=== PATIENT | male | born 1970 | race Caucasian/White ===

== ENCOUNTER 2022-10-30 19:15 | Observation (INO) | payer OTHER ==
[2022-10-30] MEDS ORDERED: ACETAMINOPHEN 1000 MG/100 ML BAG IVPB ONE (20:00)
[2022-10-30] MEDS ORDERED: ALBUTEROL SO4 2.5/IPRATROPIUM 0.5 INH SOL 3 ML VIAL.NEB. NEB ONE ×2 (20:30→21:36)
[2022-10-30] MEDS ORDERED: ACETAMINOPHEN INJECTION 100 ML IVPB ONE (20:30)
[2022-10-30] MEDS: ALBUTEROL SO4 2.5/IPRATROPIUM 0.5 INH SOL 3 ML VIAL.NEB. NEB SCH ×3 (21:03→21:41)
[2022-10-30 22:01] LABS: VENOUS O2 SATURATION 52.8 % (70-80); VENOUS PCO2 47.3 mmHg (38-52); VENOUS PH 7.344 (7.310-7.410)
[2022-10-30 22:08] LABS: HEMATOCRIT 43.8 % (35.4-49); HEMOGLOBIN 14.5 GM/dL (11.7-16.9); MCH 28.6 pg (25.7-33.7); MCHC 33.1 g/dl (32.0-35.9); MEAN CELL VOLUME 86.5 fl (80-96); MEAN PLT VOLUME 8.7 fl (7.5-11.1); PLATELET COUNT 250 10^3/uL (134-434); RBC 5.06 M/mm3 (4.00-5.60); RDW 15.4 % (11.9-15.9); WHITE BLOOD COUNT 12.9 K/mm3 (4.0-10.0)
[2022-10-30 22:19] LABS: INR 0.95 (0.83-1.09)
[2022-10-30 22:21] LABS: CHLORIDE 110 mmol/L (98-107); POTASSIUM 4.2 mmol/L (3.5-5.1); SODIUM 142 mmol/L (136-145)
[2022-10-30 22:22] LABS: CALCIUM 8.6 mg/dL (8.5-10.1)
[2022-10-30 22:24] LABS: ALBUMIN 3.3 g/dl (3.4-5.0); ANION GAP 4 MMOL/L (8-16); CO2 28 mmol/L (21-32); GLUCOSE,RANDOM 90 mg/dL (74-106)
[2022-10-30 22:27] LABS: SGOT/AST 21 U/L (15-37); SGPT/ALT 25 U/L (13-61)
[2022-10-30 22:28] LABS: TOT PROT 6.2 g/dl (6.4-8.2)
[2022-10-30 22:30] LABS: ALK PHOS 70 U/L (45-117)
[2022-10-30 22:32] LABS: N-TERMINAL BNP < 5.0 pg/ml (5-125)
[2022-10-30 22:43] LABS: BILIRUBIN,TOTAL 0.2 mg/dL (0.2-1); BLOOD UREA NITROGEN 12.8 mg/dL (7-18)
[2022-10-30] MEDS ORDERED: ACETAMINOPHEN 500 MG TABLET (FP) PO ONE (23:11)
[2022-10-31 00:35] LABS: ANISOCYTOSIS 0; MACROCYTOSIS 0
[2022-10-31] MEDS ORDERED: traMADol HCL 50 MG TABLET PO PRN (01:50)
[2022-10-31] MEDS ORDERED: ACETAMINOPHEN 325 MG TABLET (FP) PO PRN (01:52)
[2022-10-31] MEDS ORDERED: ALBUTEROL SO4 HFA INHALER IH PRN (01:52)
[2022-10-31] MEDS ORDERED: FUROSEMIDE 40 MG/4 ML INJECTABLE VIAL IVPUSH ONE (01:57)
[2022-10-31] MEDS ORDERED: FUROSEMIDE 40 MG/4 ML INJECTABLE VIAL ONE (02:03)
[2022-10-31] MEDS: methylPREDNISolone NA SUCC 40 MG/1 ML VIAL IVPUSH SCH ×4 (03:00→22:39)
[2022-10-31] MEDS ORDERED: FUROSEMIDE 40 MG/4 ML INJECTABLE VIAL IVPUSH SCH (06:00)
[2022-10-31 06:46] LABS: POTASSIUM 4.4 mmol/L (3.5-5.1)
[2022-10-31 06:47] LABS: CALCIUM 8.7 mg/dL (8.5-10.1)
[2022-10-31 06:48] LABS: BLOOD UREA NITROGEN 12.9 mg/dL (7-18); MAGNESIUM 2.2 mg/dL (1.8-2.4)
[2022-10-31 06:52] LABS: PHOSPHOROUS 2.3 mg/dL (2.5-4.9)
[2022-10-31 06:56] LABS: HEMATOCRIT 42.9 % (35.4-49); HEMOGLOBIN 14.3 GM/dL (11.7-16.9); MCH 29.1 pg (25.7-33.7); MCHC 33.4 g/dl (32.0-35.9); MEAN PLT VOLUME 8.4 fl (7.5-11.1); PLATELET COUNT 236 10^3/uL (134-434); RBC 4.93 M/mm3 (4.00-5.60); RDW 15.4 % (11.9-15.9); WHITE BLOOD COUNT 12.3 K/mm3 (4.0-10.0)
[2022-10-31] MEDS ORDERED: FUROSEMIDE 20 MG TABLET (FP) ONE ×2 (08:33→14:08)
[2022-10-31] MEDS ORDERED: TAMSULOSIN HCL 0.4 MG CAP ONE (08:33)
[2022-10-31] MEDS ORDERED: ALBUTEROL SO4 2.5/IPRATROPIUM 0.5 INH SOL 3 ML VIAL.NEB. NEB ONE ×3 (08:33→15:49)
[2022-10-31] MEDS ORDERED: methylPREDNISolone NA SUCC 40 MG/1 ML VIAL ONE ×2 (08:34→15:50)
[2022-10-31] MEDS: TAMSULOSIN HCL 0.4 MG CAP PO SCH (08:45)
[2022-10-31] MEDS: FUROSEMIDE 20 MG TABLET (FP) PO SCH ×2 (08:45→14:16)
[2022-10-31] MEDS: ALBUTEROL SO4 2.5/IPRATROPIUM 0.5 INH SOL 3 ML VIAL.NEB. NEB SCH ×4 (08:45→20:40)
[2022-10-31] MEDS ORDERED: predniSONE 10 MG TABLET (UD) PO SCH (10:00)
[2022-10-31] MEDS ORDERED: TIOTROPIUM BROMIDE 2.5 MCG (SPIRIVA) RESPIMAT INHALER IH SCH (10:00)
[2022-10-31] MEDS ORDERED: TOPIRAMATE 25 MG TABLET ONE (11:35)
[2022-10-31] MEDS ORDERED: PANTOPRAZOLE 40 MG TABLET PO ONE (11:35)
[2022-10-31] MEDS ORDERED: SENNOSIDES 8.6MG TABLET (FP) PO ONE (11:35)
[2022-10-31] MEDS ORDERED: GABAPENTIN 300 MG CAPSULE ONE (11:36)
[2022-10-31] MEDS ORDERED: ENOXAPARIN NA (PORCINE) 40 MG/0.4 ML DISP.SYRIN SQ ONE (11:36)
[2022-10-31 11:56] LABS: URINE APPEARANCE CLOUDY; URINE BILIRUBIN NEGATIVE (NEGATIVE); URINE COLOR YELLOW; URINE GLUCOSE (UA) NEGATIVE (NEGATIVE); URINE KETONE NEGATIVE (NEGATIVE); URINE LEUK ESTERASE NEGATIVE (NEGATIVE); URINE NITRITE NEGATIVE (NEGATIVE); URINE PROTEIN NEGATIVE (NEGATIVE); URINE UROBILINOGEN 0.2 mg/dL (0.2-1.0)
[2022-10-31] MEDS: ENOXAPARIN NA (PORCINE) 40 MG/0.4 ML DISP.SYRIN SQ SCH ×2 (14:15→22:40)
[2022-10-31] MEDS: PANTOPRAZOLE 40 MG TABLET PO SCH (14:16)
[2022-10-31] MEDS: GABAPENTIN 300 MG CAPSULE PO SCH ×2 (14:16→22:40)
[2022-10-31] MEDS: TOPIRAMATE 100 MG TABLET PO SCH (14:16)
[2022-10-31] MEDS: SENNOSIDES 8.6MG TABLET (FP) PO SCH ×2 (14:16→22:40)
[2022-10-31] MEDS: BUDESONIDE/FORMETEROL FUMARATE 160/4.5 mcg INHALER IH SCH ×2 (14:30→22:41)
[2022-10-31] MEDS ORDERED: traZODone HCL 50 MG TABLET (FP) ONE (21:08)
[2022-10-31] MEDS: MONTELUKAST NA 10 MG TABLET PO SCH (22:40)
[2022-10-31] MEDS: ATORVASTATIN CA 20 MG TABLET (FP) PO SCH (22:40)
[2022-10-31] MEDS: traZODone HCL 100 MG TABLET (FP) PO SCH (22:41)
[2022-11-01 01:27] VITALS: BMI 46.3
[2022-11-01] MEDS: methylPREDNISolone NA SUCC 40 MG/1 ML VIAL IVPUSH SCH ×4 (02:30→21:01)
[2022-11-01] MEDS: FUROSEMIDE 20 MG TABLET (FP) PO SCH ×2 (06:20→13:27)
[2022-11-01] MEDS: BUDESONIDE/FORMETEROL FUMARATE 160/4.5 mcg INHALER IH SCH ×3 (08:06→22:18)
[2022-11-01] MEDS: ALBUTEROL SO4 2.5/IPRATROPIUM 0.5 INH SOL 3 ML VIAL.NEB. NEB SCH ×4 (08:16→20:10)
[2022-11-01] MEDS: TOPIRAMATE 100 MG TABLET PO SCH ×2 (09:43→09:58)
[2022-11-01] MEDS: SENNOSIDES 8.6MG TABLET (FP) PO SCH ×2 (09:43→22:13)
[2022-11-01] MEDS: PANTOPRAZOLE 40 MG TABLET PO SCH (09:43)
[2022-11-01] MEDS: ENOXAPARIN NA (PORCINE) 40 MG/0.4 ML DISP.SYRIN SQ SCH ×2 (09:43→22:15)
[2022-11-01] MEDS: GABAPENTIN 300 MG CAPSULE PO SCH ×2 (09:43→22:14)
[2022-11-01] MEDS: TAMSULOSIN HCL 0.4 MG CAP PO SCH (09:43)
[2022-11-01] MEDS: dilTIAZem HCL 30 MG TABLET PO SCH ×3 (13:27→23:52)
[2022-11-01 15:44] LABS: CHOLESTEROL 186 mg/dL (50-200)
[2022-11-01 15:46] LABS: LDL CHOLESTEROL (ONLY SJRH) 93 mg/dL (5-100)
[2022-11-01 15:48] LABS: HDL CHOLESTEROL 56 mg/dL (40-60)
[2022-11-01] MEDS: rOPINIRole HCL 2 MG TABLET (FP) PO SCH (20:20)
[2022-11-01] MEDS ORDERED: traZODone HCL 50 MG TABLET (FP) ONE (22:03)
[2022-11-01] MEDS ORDERED: traZODone HCL 50 MG TABLET (FP) PO SCH (22:04)
[2022-11-01] MEDS: traZODone HCL 50 MG TABLET (FP) PO SCH (22:13)
[2022-11-01] MEDS: MONTELUKAST NA 10 MG TABLET PO SCH (22:13)
[2022-11-01] MEDS: ATORVASTATIN CA 20 MG TABLET (FP) PO SCH (22:14)
[2022-11-01] MEDS: TIZANIDINE HCL 4 MG TABLET PO SCH (22:15)
[2022-11-01] MEDS: traZODone HCL 100 MG TABLET (FP) PO SCH (22:53)
[2022-11-01 23:15] VITALS: RESP 20
[2022-11-02] MEDS: methylPREDNISolone NA SUCC 40 MG/1 ML VIAL IVPUSH SCH ×3 (03:43→23:16)
[2022-11-02] MEDS: FUROSEMIDE 20 MG TABLET (FP) PO SCH ×2 (06:04→13:37)
[2022-11-02] MEDS: dilTIAZem HCL 30 MG TABLET PO SCH ×3 (06:05→17:01)
[2022-11-02] MEDS: ALBUTEROL SO4 2.5/IPRATROPIUM 0.5 INH SOL 3 ML VIAL.NEB. NEB SCH ×4 (07:15→20:24)
[2022-11-02] MEDS: PANTOPRAZOLE 40 MG TABLET PO SCH (09:52)
[2022-11-02] MEDS: ENOXAPARIN NA (PORCINE) 40 MG/0.4 ML DISP.SYRIN SQ SCH ×2 (09:52→21:37)
[2022-11-02] MEDS: GABAPENTIN 300 MG CAPSULE PO SCH ×2 (09:52→21:36)
[2022-11-02] MEDS: SENNOSIDES 8.6MG TABLET (FP) PO SCH ×2 (09:52→21:36)
[2022-11-02] MEDS: TAMSULOSIN HCL 0.4 MG CAP PO SCH (09:52)
[2022-11-02] MEDS: rOPINIRole HCL 1 MG TABLET (FP) PO SCH ×4 (09:54→13:43)
[2022-11-02] MEDS: BUDESONIDE/FORMETEROL FUMARATE 160/4.5 mcg INHALER IH SCH ×2 (09:55→21:38)
[2022-11-02] MEDS: TIZANIDINE HCL 4 MG TABLET PO SCH ×2 (09:55→23:16)
[2022-11-02] MEDS: TOPIRAMATE 100 MG TABLET PO SCH ×3 (09:57→23:16)
[2022-11-02] MEDS: ATORVASTATIN CA 20 MG TABLET (FP) PO SCH (21:36)
[2022-11-02] MEDS: MONTELUKAST NA 10 MG TABLET PO SCH (21:36)
[2022-11-02] MEDS: traZODone HCL 50 MG TABLET (FP) PO SCH (21:36)
[2022-11-02] MEDS: rOPINIRole HCL 2 MG TABLET (FP) PO SCH (21:37)
[2022-11-03] MEDS: dilTIAZem HCL 30 MG TABLET PO SCH ×3 (01:32→12:05)
[2022-11-03] MEDS: FUROSEMIDE 20 MG TABLET (FP) PO SCH (06:33)
[2022-11-03] MEDS: ALBUTEROL SO4 2.5/IPRATROPIUM 0.5 INH SOL 3 ML VIAL.NEB. NEB SCH ×2 (07:47→11:22)
[2022-11-03] MEDS: SENNOSIDES 8.6MG TABLET (FP) PO SCH (09:00)
[2022-11-03] MEDS: PANTOPRAZOLE 40 MG TABLET PO SCH (09:00)
[2022-11-03] MEDS: GABAPENTIN 300 MG CAPSULE PO SCH (09:01)
[2022-11-03] MEDS: TAMSULOSIN HCL 0.4 MG CAP PO SCH (09:01)
[2022-11-03] MEDS: methylPREDNISolone NA SUCC 40 MG/1 ML VIAL IVPUSH SCH (09:01)
[2022-11-03] MEDS: ENOXAPARIN NA (PORCINE) 40 MG/0.4 ML DISP.SYRIN SQ SCH (09:01)
[2022-11-03] MEDS: TOPIRAMATE 100 MG TABLET PO SCH (09:02)
[2022-11-03] MEDS: rOPINIRole HCL 1 MG TABLET (FP) PO SCH (09:02)
[2022-11-03] MEDS: BUDESONIDE/FORMETEROL FUMARATE 160/4.5 mcg INHALER IH SCH (09:03)
[2022-11-03] MEDS: TIZANIDINE HCL 4 MG TABLET PO SCH (09:04)
[2022-11-03 12:26] VITALS: BP 124/78; PULSE 106; TEMP 97.8
[2022-11-03] MEDS ORDERED: predniSONE 20 MG TABLET (UD) PO SCH (22:00)
== END 2022-11-03 13:59 | disposition home or self-care (01) ==
LOC: JER 19:15 → JERBED 10-31 00:19 → J4W 10-31 18:49
PROVIDERS: ADMIT Internal Medicine; ATTEND Family Medicine
PROC: 3E033NZ Introduction of Analgesics, Hypnotics, Sedatives into Peripheral Vein, Percutaneous Approach (ICD-10-PCS; principal; 2022-10-31)
PROC: 3E033GC Introduction of Other Therapeutic Substance into Peripheral Vein, Percutaneous Approach (ICD-10-PCS; 2022-10-31)
PROC: 3E0F7SF Introduction of Other Gas into Respiratory Tract, Via Natural or Artificial Opening (ICD-10-PCS; 2022-10-31)
DX: J45.901 Unspecified asthma with (acute) exacerbation (principal); R07.89 Other chest pain; K57.92 Diverticulitis of intestine, part unspecified, without perforation or abscess without bleeding; R60.0 Localized edema; G47.33 Obstructive sleep apnea (adult) (pediatric); I50.9 Heart failure, unspecified; I11.0 Hypertensive heart disease with heart failure; F41.9 Anxiety disorder, unspecified; F32.A Depression, unspecified; F17.210 Nicotine dependence, cigarettes, uncomplicated; K21.9 Gastro-esophageal reflux disease without esophagitis; D72.829 Elevated white blood cell count, unspecified; E11.65 Type 2 diabetes mellitus with hyperglycemia; Z68.42 Body mass index [BMI] 45.0-49.9, adult; M17.0 Bilateral primary osteoarthritis of knee; Z98.84 Bariatric surgery status
CPT/HCPCS: 0241U-QW; 36415; 71045-TC-FY; 80048; 80053; 80061; 81003; 82550; 82803; 82962; 83036; 83735; 83880; 84100; 84436; 84443; 84484; 85025; 85027; 85610; 85730; 93005; 93010; 93306-TC; 93970-TC; 94640; 96372; 96374; 96375; 97116-GP; 97161-GP; 99285-25; G0378

== ENCOUNTER 2023-02-19 16:29 | Emergency (ER) | payer OTHER ==
[2023-02-19 16:46] VITALS: BMI 48.7
[2023-02-19] MEDS ORDERED: ONDANSETRON *ODT* 4 MG TABLET SL ONE (17:39)
[2023-02-19] MEDS ORDERED: LIDOCAINE 5% TOPICAL PATCH TP ONE (17:39)
[2023-02-19] MEDS ORDERED: LIDOCAINE 5% TOPICAL PATCH ONE (18:09)
[2023-02-19] MEDS ORDERED: ONDANSETRON *ODT* 4 MG TABLET ONE (18:09)
[2023-02-19 18:50] LABS: BASO % 0.9 % (0-2.0); EOS % 2.2 % (0-4.5); HEMATOCRIT 44.8 % (35.4-49); LYMPH % 22.6 % (8-40); MCH 28.9 pg (25.7-33.7); MCHC 33.5 g/dl (32.0-35.9); MEAN CELL VOLUME 86.4 fl (80-96); MEAN PLT VOLUME 8.7 fl (7.5-11.1); NEUT % 65.3 % (42.8-82.8); PLATELET COUNT 231 10^3/uL (134-434); RBC 5.19 M/mm3 (4.00-5.60); RDW 14.2 % (11.9-15.9); WHITE BLOOD COUNT 9.4 K/mm3 (4.0-10.0)
[2023-02-19 19:11] LABS: POTASSIUM 4.2 mmol/L (3.5-5.1)
[2023-02-19 19:14] LABS: ALBUMIN 3.5 g/dl (3.4-5.0); CALCIUM 8.2 mg/dL (8.5-10.1)
[2023-02-19 19:15] LABS: BLOOD UREA NITROGEN 12.1 mg/dL (7-18); MAGNESIUM 2.2 mg/dL (1.8-2.4)
[2023-02-19 19:17] LABS: CREATININE 1.2 mg/dL (0.55-1.3)
[2023-02-19 19:19] LABS: BILIRUBIN,TOTAL 0.2 mg/dL (0.2-1); TOT PROT 6.1 g/dl (6.4-8.2)
[2023-02-19] MEDS ORDERED: diazePAM CARPU-JECT 10 MG/2 ML DISP.SYRIN IVPUSH ONE (21:22)
[2023-02-19] MEDS ORDERED: diazePAM CARPU-JECT 10 MG/2 ML DISP.SYRIN ONE (21:24)
[2023-02-19] MEDS ORDERED: LIDOCAINE PATCH REMOVAL MC SCH (22:00)
[2023-02-20 00:50] VITALS: BP 105/54; PULSE 85; RESP 16; TEMP 97.9
== END 2023-02-20 03:03 | disposition home or self-care (01) ==
LOC: JERFT 16:29 → JER 16:29
PROC: 3E033GC Introduction of Other Therapeutic Substance into Peripheral Vein, Percutaneous Approach (ICD-10-PCS; principal; 2023-02-19)
DX: M54.50 Low back pain, unspecified (principal); R11.2 Nausea with vomiting, unspecified; R10.30 Lower abdominal pain, unspecified
CPT/HCPCS: 36415; 74176-TC; 74177-TC; 80053; 83690; 83735; 84100; 85025; 96374; 99284-25; Q0162; Q9967

== ENCOUNTER 2023-03-02 03:03 | Emergency (ER) | payer OTHER ==
[2023-03-02 03:09] VITALS: RESP 18; TEMP 98.3
[2023-03-02 05:07] LABS: POTASSIUM 4.4 mmol/L (3.5-5.1)
[2023-03-02 05:10] LABS: BLOOD UREA NITROGEN 12.1 mg/dL (7-18); CALCIUM 8.6 mg/dL (8.5-10.1); MAGNESIUM 1.6 mg/dL (1.8-2.4)
[2023-03-02 05:11] LABS: ALBUMIN 3.6 g/dl (3.4-5.0)
[2023-03-02 05:15] LABS: BILIRUBIN,TOTAL 0.5 mg/dL (0.2-1); TOT PROT 6.3 g/dl (6.4-8.2)
[2023-03-02] MEDS ORDERED: POLYETHYLENE GLYCOL (HEALTHYLAX) 3350 17 GM PACKET PO ONE (05:15)
[2023-03-02] MEDS ORDERED: POLYETHYLENE GLYCOL (HEALTHYLAX) 3350 17 GM PACKET ONE (05:19)
[2023-03-02 05:32] LABS: BASO % 0.7 % (0-2.0); EOS % 0.9 % (0-4.5); HEMATOCRIT 44.7 % (35.4-49); HEMOGLOBIN 14.7 GM/dL (11.7-16.9); LYMPH % 17.3 % (8-40); MCH 28.5 pg (25.7-33.7); MCHC 32.8 g/dl (32.0-35.9); MEAN CELL VOLUME 86.8 fl (80-96); MONO % 10.6 % (3.8-10.2); NEUT % 70.5 % (42.8-82.8); PLATELET COUNT 256 10^3/uL (134-434); RBC 5.14 M/mm3 (4.00-5.60); RDW 13.8 % (11.9-15.9); WHITE BLOOD COUNT 14.1 K/mm3 (4.0-10.0)
[2023-03-02 05:53] VITALS: BMI 44.3
[2023-03-02] MEDS ORDERED: CIPROFLOXACIN 400 MG/D5W 400 MG/200 ML IVPB IVPB ONE (06:13)
[2023-03-02] MEDS ORDERED: KETOROLAC TROMETHAMINE 30 MG/1 ML VIAL IVPUSH ONE (06:17)
[2023-03-02] MEDS ORDERED: MAGNESIUM SULF 50% (8.12 MEQ/2 ML-1 GM VIAL) IVPB ONE (06:26)
[2023-03-02] MEDS ORDERED: KETOROLAC TROMETHAMINE 30 MG/1 ML VIAL ONE (06:27)
[2023-03-02 06:35] VITALS: BP 124/82; PULSE 84
[2023-03-02] MEDS ORDERED: MAGNESIUM 1GM/D5W - 1 GM/100 ML IVPB IVPB ONE (07:18)
[2023-03-02 08:11] LABS: URINE APPEARANCE CLEAR; URINE BILIRUBIN NEGATIVE (NEGATIVE); URINE COLOR DK YELLOW; URINE GLUCOSE (UA) NEGATIVE (NEGATIVE); URINE KETONE TRACE (NEGATIVE); URINE LEUK ESTERASE NEGATIVE (NEGATIVE); URINE NITRITE NEGATIVE (NEGATIVE); URINE PROTEIN NEGATIVE (NEGATIVE); URINE UROBILINOGEN 0.2 mg/dL (0.2-1.0)
== END 2023-03-02 08:14 | disposition home or self-care (01) ==
LOC: JER 03:03
PROC: 3E03329 Introduction of Other Anti-infective into Peripheral Vein, Percutaneous Approach (ICD-10-PCS; principal; 2023-03-02)
PROC: 3E0333Z Introduction of Anti-inflammatory into Peripheral Vein, Percutaneous Approach (ICD-10-PCS; 2023-03-02)
PROC: 3E033GC Introduction of Other Therapeutic Substance into Peripheral Vein, Percutaneous Approach (ICD-10-PCS; 2023-03-02)
PROC: 3E03329 Introduction of Other Anti-infective into Peripheral Vein, Percutaneous Approach (ICD-10-PCS; 2023-03-02)
DX: R10.32 Left lower quadrant pain (principal); K59.00 Constipation, unspecified; E66.01 Morbid (severe) obesity due to excess calories; K57.92 Diverticulitis of intestine, part unspecified, without perforation or abscess without bleeding
CPT/HCPCS: 36415; 74019-TC-FY; 80053; 81003; 83690; 83735; 85025; 96365; 96368; 96375; 99284-25

== ENCOUNTER 2023-03-02 16:50 | Observation (INO) | payer OTHER ==
[2023-03-02 17:26] VITALS: BMI 44.4
[2023-03-02] MEDS ORDERED: ACETAMINOPHEN 1000 MG/100 ML BAG IVPB ONE (17:58)
[2023-03-02] MEDS ORDERED: ACETAMINOPHEN INJECTION 100 ML IVPB ONE (18:32)
[2023-03-02 18:55] LABS: BASO % 0.5 % (0-2.0); EOS % 0.3 % (0-4.5); HEMATOCRIT 43.7 % (35.4-49); HEMOGLOBIN 14.8 GM/dL (11.7-16.9); LYMPH % 6.2 % (8-40); MCH 28.7 pg (25.7-33.7); MCHC 33.8 g/dl (32.0-35.9); MEAN CELL VOLUME 84.9 fl (80-96); MEAN PLT VOLUME 8.6 fl (7.5-11.1); MONO % 8.1 % (3.8-10.2); NEUT % 84.9 % (42.8-82.8); PLATELET COUNT 253 10^3/uL (134-434); RBC 5.14 M/mm3 (4.00-5.60)
[2023-03-02 19:19] LABS: POTASSIUM 4.3 mmol/L (3.5-5.1)
[2023-03-02 19:21] LABS: ALBUMIN 3.6 g/dl (3.4-5.0)
[2023-03-02 19:25] LABS: CREATININE 1.1 mg/dL (0.55-1.3)
[2023-03-02 19:27] LABS: BILIRUBIN,TOTAL 0.7 mg/dL (0.2-1); TOT PROT 6.5 g/dl (6.4-8.2)
[2023-03-02] MEDS ORDERED: MAG HYDROX/AL HYDROX/SIMETH 30 ML UNIT-DOSE CUP PO ONE (19:32)
[2023-03-02] MEDS ORDERED: FAMOTIDINE 20 MG/50 ML IVPB 20 MG/50 ML MG IVPB ONE ×2 (19:33→19:59)
[2023-03-02 19:37] LABS: CALCIUM 8.9 mg/dL (8.5-10.1)
[2023-03-02] MEDS ORDERED: MAG HYDROX/AL HYDROX/SIMETH 30 ML UNIT-DOSE CUP ONE (19:59)
[2023-03-02] MEDS ORDERED: KETOROLAC TROMETHAMINE 15 MG/ML VIAL IVPUSH ONE (20:06)
[2023-03-02] MEDS ORDERED: KETOROLAC TROMETHAMINE 15 MG/ML VIAL ONE (20:13)
[2023-03-02] MEDS ORDERED: CIPROFLOXACIN 400 MG/D5W 400 MG/200 ML IVPB IVPB ONE (21:57)
[2023-03-02] MEDS ORDERED: SODIUM CHLORIDE 0.9% 500 ML INFUS.BAG IV ONE (21:58)
[2023-03-02 23:08] LABS: URINE APPEARANCE CLEAR; URINE BILIRUBIN SMALL (NEGATIVE); URINE COLOR DK YELLOW; URINE GLUCOSE (UA) NEGATIVE (NEGATIVE)
[2023-03-02 23:09] LABS: URINE KETONE TRACE (NEGATIVE); URINE LEUK ESTERASE 1+ (NEGATIVE); URINE NITRITE NEGATIVE (NEGATIVE); URINE PROTEIN TRACE (NEGATIVE)
[2023-03-02 23:11] LABS: EPI CELLS 4 /uL (0-25.1); HYALINE CASTS 0 /uL (0-3.1); URINE BACTERIA 2 /uL (0-1359); URINE RBC 25 /uL (0-23.9); URINE WBC 1490 /uL (0-25.8)
[2023-03-03] MEDS ORDERED: ACETAMINOPHEN 1000 MG/100 ML BAG IVPB PRN (01:13)
[2023-03-03] MEDS: SODIUM CHLORIDE 1,000 ML IV SCH ×2 (01:22→18:38)
[2023-03-03] MEDS ORDERED: ALBUTEROL SO4 HFA INHALER IH PRN (05:03)
[2023-03-03] MEDS ORDERED: SENNOSIDES 8.8 MG/5 ML SYRUP PO ONE (06:00)
[2023-03-03] MEDS: TOPIRAMATE 100 MG TABLET PO SCH ×2 (06:49→21:19)
[2023-03-03] MEDS: rOPINIRole HCL 1 MG TABLET (FP) PO SCH ×2 (06:49→21:21)
[2023-03-03] MEDS: INSULIN SLIDING SCALE (NOVOLOG) 1 VIAL SQ SCH ×4 (07:01→21:18)
[2023-03-03 08:04] LABS: POTASSIUM 3.7 mmol/L (3.5-5.1)
[2023-03-03 08:07] LABS: BLOOD UREA NITROGEN 12.8 mg/dL (7-18)
[2023-03-03 08:08] LABS: CALCIUM 8.4 mg/dL (8.5-10.1)
[2023-03-03 08:12] LABS: BASO % 0.4 % (0-2.0); EOS % 2.2 % (0-4.5); HEMATOCRIT 41.8 % (35.4-49); HEMOGLOBIN 13.6 GM/dL (11.7-16.9); LYMPH % 13.7 % (8-40); MCH 28.3 pg (25.7-33.7); MCHC 32.6 g/dl (32.0-35.9); MEAN CELL VOLUME 86.9 fl (80-96); MEAN PLT VOLUME 9.2 fl (7.5-11.1); MONO % 11.8 % (3.8-10.2); NEUT % 71.9 % (42.8-82.8); PLATELET COUNT 248 10^3/uL (134-434); RBC 4.81 M/mm3 (4.00-5.60); RDW 14.2 % (11.9-15.9); WHITE BLOOD COUNT 12.4 K/mm3 (4.0-10.0)
[2023-03-03] MEDS: traMADol HCL 50 MG TABLET PO PRN ×2 (08:24→21:22)
[2023-03-03 08:40] LABS: INR 1.31 (0.83-1.09); PROTHROMBIN TIME (PATIENT) 15.1 SEC (9.7-13.0)
[2023-03-03 08:43] LABS: ACTIVATED PTT 31.6 SECONDS (25.2-36.5)
[2023-03-03] MEDS: BUDESONIDE/FORMETEROL FUMARATE 160/4.5 mcg INHALER IH SCH ×2 (09:26→21:24)
[2023-03-03] MEDS: PANTOPRAZOLE 40 MG TABLET PO ONE ×2 (09:29→09:32)
[2023-03-03] MEDS ORDERED: PANTOPRAZOLE 40 MG TABLET PO ONE (09:30)
[2023-03-03] MEDS: MULTIVITAMINS (DAILY MVI) TABLET (FP) PO SCH (09:30)
[2023-03-03] MEDS: FENOFIBRIC ACID 135 MG CAP PO SCH (09:30)
[2023-03-03] MEDS: EZETIMIBE 10 MG TABLET (FP) PO SCH (09:30)
[2023-03-03 12:00] LABS: ERYTHROCYTE SEDIMENTATION RATE 5 mm/hr (0-20)
[2023-03-03] MEDS ORDERED: ONDANSETRON *ODT* 4 MG TABLET SL ONE (13:45)
[2023-03-03] MEDS: TIOTROPIUM BROMIDE 2.5 MCG (SPIRIVA) RESPIMAT INHALER IH SCH (15:28)
[2023-03-03] MEDS: PIPERACILLIN/TAZOB 4.5 GM 4.5 GM in DEXTROSE 5%-WATER 100 ML IVPB SCH (18:38)
[2023-03-03] MEDS: SENNOSIDES 8.6MG TABLET (FP) PO SCH (21:18)
[2023-03-03] MEDS: MONTELUKAST NA 10 MG TABLET PO SCH ×2 (21:19→21:28)
[2023-03-03] MEDS: traZODone HCL 100 MG TABLET (FP) PO SCH (21:20)
[2023-03-04] MEDS: SODIUM CHLORIDE 1,000 ML IV SCH ×3 (02:31→21:35)
[2023-03-04] MEDS: PIPERACILLIN/TAZOB 4.5 GM 4.5 GM in DEXTROSE 5%-WATER 100 ML IVPB SCH ×3 (02:34→17:23)
[2023-03-04] MEDS ORDERED: ACETAMINOPHEN 1000 MG/100 ML BAG IVPB PRN (03:43)
[2023-03-04] MEDS: INSULIN SLIDING SCALE (NOVOLOG) 1 VIAL SQ SCH ×4 (07:48→21:44)
[2023-03-04] MEDS: FENOFIBRIC ACID 135 MG CAP PO SCH (09:00)
[2023-03-04] MEDS: MULTIVITAMINS (DAILY MVI) TABLET (FP) PO SCH (09:01)
[2023-03-04] MEDS: SENNOSIDES 8.6MG TABLET (FP) PO SCH ×2 (09:01→21:32)
[2023-03-04] MEDS: EZETIMIBE 10 MG TABLET (FP) PO SCH (09:01)
[2023-03-04] MEDS: traMADol HCL 50 MG TABLET PO PRN ×2 (09:07→21:46)
[2023-03-04] MEDS: BUDESONIDE/FORMETEROL FUMARATE 160/4.5 mcg INHALER IH SCH ×2 (09:08→21:37)
[2023-03-04] MEDS: TIOTROPIUM BROMIDE 2.5 MCG (SPIRIVA) RESPIMAT INHALER IH SCH (09:09)
[2023-03-04] MEDS: PATIENT'S OWN MEDICATION (NON-FORMULARY) (Linaclotide [Linzess] 145 MCG Capsule) PO SCH (13:19)
[2023-03-04] MEDS: PATIENT'S OWN MEDICATION (NON-FORMULARY) (Tizanidine Hcl [Tizanidine Hcl] 4 MG Tablet) PO SCH (13:19)
[2023-03-04] MEDS ORDERED: INSULIN (NOVOLOG) ASPART 100 UNITS/ML 10ML VIAL ONE (21:02)
[2023-03-04] MEDS: MONTELUKAST NA 10 MG TABLET PO SCH ×2 (21:31→21:43)
[2023-03-04] MEDS: TOPIRAMATE 100 MG TABLET PO SCH (21:32)
[2023-03-04] MEDS: traZODone HCL 100 MG TABLET (FP) PO SCH (21:32)
[2023-03-04] MEDS: rOPINIRole HCL 1 MG TABLET (FP) PO SCH (21:36)
[2023-03-05] MEDS: PIPERACILLIN/TAZOB 4.5 GM 4.5 GM in DEXTROSE 5%-WATER 100 ML IVPB SCH ×2 (02:58→09:54)
[2023-03-05] MEDS: SODIUM CHLORIDE 1,000 ML IV SCH (06:12)
[2023-03-05] MEDS: INSULIN SLIDING SCALE (NOVOLOG) 1 VIAL SQ SCH ×2 (06:13→11:29)
[2023-03-05] MEDS: BUDESONIDE/FORMETEROL FUMARATE 160/4.5 mcg INHALER IH SCH (09:53)
[2023-03-05] MEDS: TIOTROPIUM BROMIDE 2.5 MCG (SPIRIVA) RESPIMAT INHALER IH SCH (09:53)
[2023-03-05] MEDS: MULTIVITAMINS (DAILY MVI) TABLET (FP) PO SCH (09:54)
[2023-03-05] MEDS: SENNOSIDES 8.6MG TABLET (FP) PO SCH (09:54)
[2023-03-05] MEDS: FENOFIBRIC ACID 135 MG CAP PO SCH (09:54)
[2023-03-05] MEDS: EZETIMIBE 10 MG TABLET (FP) PO SCH (09:55)
[2023-03-05 09:59] VITALS: RESP 20
[2023-03-05] MEDS: traMADol HCL 50 MG TABLET PO PRN (10:03)
[2023-03-05] MEDS ORDERED: INSULIN (NOVOLOG) ASPART 100 UNITS/ML 10ML VIAL ONE (11:27)
[2023-03-05 12:35] LABS: BASO % 0.8 % (0-2.0); EOS % 4.3 % (0-4.5); HEMATOCRIT 45.5 % (35.4-49); HEMOGLOBIN 14.5 GM/dL (11.7-16.9); MCHC 31.8 g/dl (32.0-35.9); MEAN CELL VOLUME 87.9 fl (80-96); NEUT % 67.9 % (42.8-82.8); PLATELET COUNT 285 10^3/uL (134-434); RBC 5.18 M/mm3 (4.00-5.60); RDW 14.3 % (11.9-15.9); WHITE BLOOD COUNT 9.5 K/mm3 (4.0-10.0)
[2023-03-05 14:38] VITALS: BP 111/53; PULSE 77; TEMP 97.9
[2023-03-06] MEDS ORDERED: MONTELUKAST NA 10 MG TABLET PO SCH (10:00)
== END 2023-03-05 15:00 | disposition home or self-care (01) ==
LOC: JER 16:50 → JERBED 22:15 → J7W 03-03 03:15
PROVIDERS: ADMIT Internal Medicine; ATTEND Family Medicine
PROC: 3E033NZ Introduction of Analgesics, Hypnotics, Sedatives into Peripheral Vein, Percutaneous Approach (ICD-10-PCS; principal; 2023-03-02)
PROC: 3E03329 Introduction of Other Anti-infective into Peripheral Vein, Percutaneous Approach (ICD-10-PCS; 2023-03-02)
PROC: 3E0333Z Introduction of Anti-inflammatory into Peripheral Vein, Percutaneous Approach (ICD-10-PCS; 2023-03-02)
PROC: 3E0337Z Introduction of Electrolytic and Water Balance Substance into Peripheral Vein, Percutaneous Approach (ICD-10-PCS; 2023-03-02)
DX: J45.909 Unspecified asthma, uncomplicated (principal); K57.92 Diverticulitis of intestine, part unspecified, without perforation or abscess without bleeding; E11.9 Type 2 diabetes mellitus without complications; R10.32 Left lower quadrant pain; Z91.013 Allergy to seafood; Z98.84 Bariatric surgery status; D64.9 Anemia, unspecified; F41.8 Other specified anxiety disorders; I50.9 Heart failure, unspecified; M17.0 Bilateral primary osteoarthritis of knee; E66.01 Morbid (severe) obesity due to excess calories; Z68.41 Body mass index [BMI] 40.0-44.9, adult; E78.5 Hyperlipidemia, unspecified; F31.9 Bipolar disorder, unspecified; Z87.891 Personal history of nicotine dependence
CPT/HCPCS: 36415; 71045-TC-FY; 74177-TC; 80048; 80053; 81003; 82962; 83036; 83735; 84100; 85025; 85610; 85651; 85730; 86140; 87086; 93005; 93010; 96365; 96366; 96367; 96368; 96375; 96376; 99285-25; G0378; Q0162

== ENCOUNTER 2023-05-31 15:26 | Inpatient (IN) | payer OTHER ==
[2023-05-31] MEDS ORDERED: ACETAMINOPHEN 1000 MG/100 ML BAG IVPB ONE (17:55)
[2023-05-31] MEDS ORDERED: ALBUTEROL SO4 2.5/IPRATROPIUM 0.5 INH SOL 3 ML VIAL.NEB. NEB ONE ×4 (17:55→20:20)
[2023-05-31] MEDS ORDERED: methylPREDNISolone NA SUCC 125 MG/2 ML VIAL IVPB ONE (17:56)
[2023-05-31] MEDS ORDERED: ACETAMINOPHEN INJECTION 100 ML IVPB ONE (18:07)
[2023-05-31] MEDS ORDERED: methylPREDNISolone NA SUCC 125 MG/2 ML VIAL ONE (18:08)
[2023-05-31 19:14] LABS: BASO % 0.5 % (0-2.0); EOS % 0.4 % (0-4.5); HEMATOCRIT 44.7 % (35.4-49); HEMOGLOBIN 14.6 GM/dL (11.7-16.9); LYMPH % 13.8 % (8-40); MCH 27.4 pg (25.7-33.7); MCHC 32.6 g/dl (32.0-35.9); MEAN CELL VOLUME 84.2 fl (80-96); MEAN PLT VOLUME 8.3 fl (7.5-11.1); MONO % 11.3 % (3.8-10.2); PLATELET COUNT 342 10^3/uL (134-434); RBC 5.31 M/mm3 (4.00-5.60); RDW 14.9 % (11.9-15.9); WHITE BLOOD COUNT 19.6 K/mm3 (4.0-10.0)
[2023-05-31 19:28] LABS: POTASSIUM 3.9 mmol/L (3.5-5.1)
[2023-05-31 19:30] LABS: ALBUMIN 3.5 g/dl (3.4-5.0); CALCIUM 8.9 mg/dL (8.5-10.1); MAGNESIUM 2.1 mg/dL (1.8-2.4)
[2023-05-31 19:31] LABS: BLOOD UREA NITROGEN 11.5 mg/dL (7-18)
[2023-05-31 19:35] LABS: BILIRUBIN,TOTAL 0.4 mg/dL (0.2-1); TOT PROT 6.5 g/dl (6.4-8.2)
[2023-05-31 19:50] LABS: N-TERMINAL BNP 39.9 pg/ml (5-125)
[2023-05-31] MEDS ORDERED: ALBUTEROL SO4 2.5/IPRATROPIUM 0.5 INH SOL 3 ML VIAL.NEB. NEB PRN (22:49)
[2023-05-31] MEDS: INSULIN SLIDING SCALE (NOVOLOG) 1 VIAL SQ SCH (22:51)
[2023-06-01] MEDS ORDERED: ACETAMINOPHEN 1000 MG/100 ML BAG IVPB PRN (01:00)
[2023-06-01] MEDS ORDERED: methylPREDNISolone NA SUCC 40 MG/1 ML VIAL ONE (02:11)
[2023-06-01] MEDS: methylPREDNISolone NA SUCC 40 MG/1 ML VIAL IVPUSH SCH ×3 (02:14→18:06)
[2023-06-01] MEDS ORDERED: ALBUTEROL SO4 2.5/IPRATROPIUM 0.5 INH SOL 3 ML VIAL.NEB. NEB ONE (02:15)
[2023-06-01 07:45] LABS: HEMATOCRIT 44.7 % (35.4-49); MCH 27.3 pg (25.7-33.7); MCHC 31.4 g/dl (32.0-35.9); MEAN CELL VOLUME 86.9 fl (80-96); MEAN PLT VOLUME 8.7 fl (7.5-11.1); PLATELET COUNT 345 10^3/uL (134-434); RBC 5.15 M/mm3 (4.00-5.60); RDW 14.9 % (11.9-15.9); WHITE BLOOD COUNT 14.5 K/mm3 (4.0-10.0)
[2023-06-01 07:51] LABS: POTASSIUM 4.6 mmol/L (3.5-5.1)
[2023-06-01 07:56] LABS: BLOOD UREA NITROGEN 11.7 mg/dL (7-18)
[2023-06-01 08:11] LABS: ACTIVATED PTT 29.2 SECONDS (25.2-36.5)
[2023-06-01 08:14] LABS: INR 1.04 (0.83-1.09); PROTHROMBIN TIME (PATIENT) 12.1 SEC (9.7-13.0)
[2023-06-01] MEDS: INSULIN SLIDING SCALE (NOVOLOG) 1 VIAL SQ SCH ×4 (08:25→21:31)
[2023-06-01] MEDS: ENOXAPARIN NA (PORCINE) 40 MG/0.4 ML DISP.SYRIN SQ SCH (09:32)
[2023-06-01] MEDS: PANTOPRAZOLE 40 MG TABLET PO SCH (11:20)
[2023-06-01] MEDS: TOPIRAMATE 100 MG TABLET PO SCH (11:20)
[2023-06-01] MEDS: MONTELUKAST NA 10 MG TABLET PO SCH (11:20)
[2023-06-01] MEDS ORDERED: MONTELUKAST NA 10 MG TABLET ONE (11:20)
[2023-06-01 11:24] LABS: ANISOCYTOSIS 0; HELMET CELLS 0; HOWELL-JOLLY BODIES 0; MACROCYTOSIS 0; OVALOCYTE 0; ROULEAU 0; SICKELED CELLS 0; TARGET CELLS 0; TEAR DROP CELLS 0; TOXIC GRANULATION 0
[2023-06-01] MEDS ORDERED: SENNOSIDES 8.6MG TABLET (FP) PO ONE (12:23)
[2023-06-01] MEDS: SENNOSIDES 8.6MG TABLET (FP) PO SCH ×2 (12:26→21:30)
[2023-06-01] MEDS: BUDESONIDE/FORMETEROL FUMARATE 160/4.5 mcg INHALER IH SCH ×2 (13:24→21:32)
[2023-06-01] MEDS: TIOTROPIUM BROMIDE 2.5 MCG (SPIRIVA) RESPIMAT INHALER IH SCH (13:24)
[2023-06-01] MEDS ORDERED: GABAPENTIN 100 MG CAPSULE ONE (14:08)
[2023-06-01] MEDS ORDERED: GABAPENTIN 300 MG CAPSULE ONE (14:09)
[2023-06-01] MEDS: GABAPENTIN 300 MG CAPSULE PO SCH ×2 (14:11→21:30)
[2023-06-01 16:03] VITALS: BMI 46.7
[2023-06-01] MEDS: traMADol HCL 50 MG TABLET PO PRN (16:12)
[2023-06-01] MEDS ORDERED: rOPINIRole HCL 2 MG TABLET (FP) PO SCH (20:00)
[2023-06-01] MEDS ORDERED: traZODone HCL 50 MG TABLET (FP) ONE (21:01)
[2023-06-01] MEDS: traZODone HCL 100 MG TABLET (FP) PO SCH (21:30)
[2023-06-01] MEDS ORDERED: PATIENT'S OWN MEDICATION (NON-FORMULARY) (Tizanidine Hcl [Tizanidine Hcl] 4 MG Tablet) PO SCH (22:00)
[2023-06-01] MEDS: rOPINIRole HCL 1 MG TABLET (FP) PO SCH (22:04)
[2023-06-02] MEDS ORDERED: ACETAMINOPHEN 325 MG TABLET (FP) PO PRN (01:00)
[2023-06-02] MEDS: methylPREDNISolone NA SUCC 40 MG/1 ML VIAL IVPUSH SCH ×3 (01:57→17:06)
[2023-06-02] MEDS: traMADol HCL 50 MG TABLET PO PRN ×3 (05:44→21:44)
[2023-06-02] MEDS: GABAPENTIN 300 MG CAPSULE PO SCH ×3 (05:45→21:40)
[2023-06-02] MEDS: INSULIN SLIDING SCALE (NOVOLOG) 1 VIAL SQ SCH ×4 (06:47→21:40)
[2023-06-02] MEDS: ENOXAPARIN NA (PORCINE) 40 MG/0.4 ML DISP.SYRIN SQ SCH (09:49)
[2023-06-02] MEDS: TOPIRAMATE 100 MG TABLET PO SCH (09:50)
[2023-06-02] MEDS: SENNOSIDES 8.6MG TABLET (FP) PO SCH ×2 (09:50→21:40)
[2023-06-02] MEDS: PANTOPRAZOLE 40 MG TABLET PO SCH (09:50)
[2023-06-02] MEDS: MONTELUKAST NA 10 MG TABLET PO SCH (09:50)
[2023-06-02] MEDS: BUDESONIDE/FORMETEROL FUMARATE 160/4.5 mcg INHALER IH SCH ×2 (09:53→21:41)
[2023-06-02] MEDS: TIOTROPIUM BROMIDE 2.5 MCG (SPIRIVA) RESPIMAT INHALER IH SCH (09:53)
[2023-06-02] MEDS ORDERED: [UNRECOGNIZED DRUG - OTHER] SQ SCH (10:00)
[2023-06-02] MEDS ORDERED: DUPILUMAB 300 MG/2 ML SQ SCH (10:00)
[2023-06-02] MEDS ORDERED: IBUPROFEN 600 MG TABLET (FP) PO ONE (12:00)
[2023-06-02] MEDS: rOPINIRole HCL 1 MG TABLET (FP) PO SCH (20:33)
[2023-06-02] MEDS ORDERED: traZODone HCL 50 MG TABLET (FP) ONE (21:15)
[2023-06-02] MEDS: traZODone HCL 100 MG TABLET (FP) PO SCH (21:40)
[2023-06-02 22:31] VITALS: RESP 20; TEMP 98.5
[2023-06-03] MEDS: methylPREDNISolone NA SUCC 40 MG/1 ML VIAL IVPUSH SCH ×2 (03:00→09:12)
[2023-06-03] MEDS: INSULIN SLIDING SCALE (NOVOLOG) 1 VIAL SQ SCH ×2 (06:27→11:34)
[2023-06-03] MEDS: GABAPENTIN 300 MG CAPSULE PO SCH ×2 (06:27→13:23)
[2023-06-03] MEDS: traMADol HCL 50 MG TABLET PO PRN ×2 (06:29→13:24)
[2023-06-03 07:18] LABS: BASO % 0.1 % (0-2.0); HEMATOCRIT 42.8 % (35.4-49); HEMOGLOBIN 13.9 GM/dL (11.7-16.9); LYMPH % 6.9 % (8-40); MCH 27.9 pg (25.7-33.7); MCHC 32.4 g/dl (32.0-35.9); MEAN CELL VOLUME 86.1 fl (80-96); MEAN PLT VOLUME 8.5 fl (7.5-11.1); MONO % 5.5 % (3.8-10.2); NEUT % 87.5 % (42.8-82.8); PLATELET COUNT 307 10^3/uL (134-434); RBC 4.97 M/mm3 (4.00-5.60); RDW 14.9 % (11.9-15.9)
[2023-06-03 07:30] VITALS: BP 115/57; PULSE 68
[2023-06-03 07:37] LABS: POTASSIUM 4.2 mmol/L (3.5-5.1)
[2023-06-03 07:45] LABS: ALBUMIN 3.2 g/dl (3.4-5.0); BLOOD UREA NITROGEN 20.4 mg/dL (7-18); CALCIUM 8.6 mg/dL (8.5-10.1)
[2023-06-03 07:50] LABS: BILIRUBIN,TOTAL 0.9 mg/dL (0.2-1)
[2023-06-03 09:05] LABS: ANISOCYTOSIS 3+; MACROCYTOSIS 0; OVALOCYTE 1+; TEAR DROP CELLS 1+
[2023-06-03] MEDS: ENOXAPARIN NA (PORCINE) 40 MG/0.4 ML DISP.SYRIN SQ SCH (09:12)
[2023-06-03] MEDS: SENNOSIDES 8.6MG TABLET (FP) PO SCH (09:12)
[2023-06-03] MEDS: TOPIRAMATE 100 MG TABLET PO SCH (09:12)
[2023-06-03] MEDS: MONTELUKAST NA 10 MG TABLET PO SCH (09:12)
[2023-06-03] MEDS: PANTOPRAZOLE 40 MG TABLET PO SCH (09:12)
[2023-06-03] MEDS: BUDESONIDE/FORMETEROL FUMARATE 160/4.5 mcg INHALER IH SCH (09:14)
[2023-06-03] MEDS: TIOTROPIUM BROMIDE 2.5 MCG (SPIRIVA) RESPIMAT INHALER IH SCH (09:15)
== END 2023-06-03 15:09 | disposition home or self-care (01) | DRG 191 ==
LOC: JER 15:26 → JERBED 20:04 → J4W 06-01 15:00
PROVIDERS: ADMIT Internal Medicine; ATTEND Family Medicine
DX: J44.1 Chronic obstructive pulmonary disease with (acute) exacerbation (principal); F31.89 Other bipolar disorder; Z68.42 Body mass index [BMI] 45.0-49.9, adult; I50.32 Chronic diastolic (congestive) heart failure; E66.01 Morbid (severe) obesity due to excess calories; F41.8 Other specified anxiety disorders; F31.9 Bipolar disorder, unspecified; F40.240 Claustrophobia; F22 Delusional disorders; M48.061 Spinal stenosis, lumbar region without neurogenic claudication; E11.40 Type 2 diabetes mellitus with diabetic neuropathy, unspecified; D72.829 Elevated white blood cell count, unspecified; Z98.84 Bariatric surgery status
CPT/HCPCS: 0241U-QW; 36415; 71046-TC-FY; 80048; 80053; 82962; 83735; 83880; 84484; 85025; 85610; 85730; 93005; 93010; 93970-TC; 99285-25

== ENCOUNTER 2023-06-07 16:11 | Inpatient (IN) | payer OTHER ==
[2023-06-07 16:28] VITALS: BMI 45.9
[2023-06-07] MEDS ORDERED: SODIUM CHLORIDE 1,000 ML IV STA (16:40)
[2023-06-07] MEDS ORDERED: morphine CARPU-JECT 4 MG/1 ML DISP.SYRIN IVPUSH ONE ×2 (16:40→22:00)
[2023-06-07] MEDS ORDERED: ONDANSETRON 4 MG/2 ML VIAL IVPUSH ONE (16:40)
[2023-06-07 17:44] LABS: HEMATOCRIT 43.6 % (35.4-49); HEMOGLOBIN 14.1 GM/dL (11.7-16.9); MCH 27.2 pg (25.7-33.7); MCHC 32.4 g/dl (32.0-35.9); PLATELET COUNT 316 10^3/uL (134-434); RBC 5.19 M/mm3 (4.00-5.60); RDW 14.9 % (11.9-15.9); WHITE BLOOD COUNT 15.9 K/mm3 (4.0-10.0)
[2023-06-07] MEDS ORDERED: ONDANSETRON 4 MG/2 ML VIAL ONE (17:51)
[2023-06-07] MEDS ORDERED: morphine SULFATE 4 MG/ML VIAL ONE ×2 (17:51→22:14)
[2023-06-07 18:03] LABS: CHLORIDE 109 mmol/L (98-107); SODIUM 138 mmol/L (136-145)
[2023-06-07 18:04] LABS: ALBUMIN 2.9 g/dl (3.4-5.0)
[2023-06-07 18:06] LABS: BLOOD UREA NITROGEN 13.5 mg/dL (7-18); CO2 25 mmol/L (21-32); GLUCOSE,RANDOM 90 mg/dL (74-106); LIPASE 146 U/L (73-393)
[2023-06-07 18:08] LABS: CREATININE 1.2 mg/dL (0.55-1.3)
[2023-06-07 18:09] LABS: SGOT/AST 74 U/L (15-37); SGPT/ALT 19 U/L (13-61)
[2023-06-07 18:10] LABS: BILIRUBIN,TOTAL 0.3 mg/dL (0.2-1)
[2023-06-07 18:11] LABS: ALK PHOS 65 U/L (45-117)
[2023-06-07 18:17] LABS: ANION GAP 5 mmol/L (4-13); POTASSIUM 6.2 mmol/L (3.5-5.1)
[2023-06-07 18:34] LABS: ANISOCYTOSIS 1+; MACROCYTOSIS 1+
[2023-06-07 19:18] LABS: PLATELET ESTIMATE ADEQUATE
[2023-06-07 20:39] LABS: PH,URINE 5.5 (5.0-8.0); URINE APPEARANCE CLEAR; URINE BILIRUBIN NEGATIVE (NEGATIVE); URINE COLOR YELLOW; URINE GLUCOSE (UA) NEGATIVE (NEGATIVE); URINE KETONE NEGATIVE (NEGATIVE); URINE LEUK ESTERASE NEGATIVE (NEGATIVE); URINE NITRITE NEGATIVE (NEGATIVE); URINE PROTEIN NEGATIVE (NEGATIVE); URINE UROBILINOGEN 0.2 mg/dL (0.2-1.0)
[2023-06-07 22:07] LABS: POTASSIUM 3.6 mmol/L (3.5-5.1)
[2023-06-07 22:09] LABS: CALCIUM 7.6 mg/dL (8.5-10.1)
[2023-06-07 22:11] LABS: ALBUMIN 2.8 g/dl (3.4-5.0)
[2023-06-07 22:16] LABS: BILIRUBIN,TOTAL 0.4 mg/dL (0.2-1); TOT PROT 5.3 g/dl (6.4-8.2)
[2023-06-07] MEDS ORDERED: SODIUM CHLORIDE 0.9% 1000 ML INFUS.BAG IV ONE (23:09)
[2023-06-08] MEDS ORDERED: ONDANSETRON 4 MG/2 ML VIAL IVPUSH PRN (02:04)
[2023-06-08] MEDS: morphine SULFATE 4 MG/ML VIAL IVPUSH PRN ×2 (03:15→17:55)
[2023-06-08 05:03] VITALS: RESP 18
[2023-06-08] MEDS ORDERED: METOCLOPRAMIDE HCL INJECTION 10 MG/2 ML VIAL IVPUSH ONE (06:10)
[2023-06-08 09:33] LABS: BASO % 0.2 % (0-2.0); EOS % 1.6 % (0-4.5); HEMATOCRIT 41.7 % (35.4-49); HEMOGLOBIN 13.9 GM/dL (11.7-16.9); LYMPH % 13.8 % (8-40); MCH 28.1 pg (25.7-33.7); MCHC 33.3 g/dl (32.0-35.9); MEAN CELL VOLUME 84.2 fl (80-96); MEAN PLT VOLUME 8.3 fl (7.5-11.1); MONO % 9.5 % (3.8-10.2); NEUT % 74.9 % (42.8-82.8); PLATELET COUNT 322 10^3/uL (134-434); RBC 4.95 M/mm3 (4.00-5.60); RDW 15.1 % (11.9-15.9); WHITE BLOOD COUNT 12.4 K/mm3 (4.0-10.0)
[2023-06-08 09:46] LABS: POTASSIUM 3.7 mmol/L (3.5-5.1)
[2023-06-08 10:04] LABS: CALCIUM 8.1 mg/dL (8.5-10.1)
[2023-06-08 10:05] LABS: BLOOD UREA NITROGEN 10.1 mg/dL (7-18)
[2023-06-08] MEDS: PIPERACILLIN/TAZOB 4.5 GM 4.5 GM in DEXTROSE 5%-WATER 100 ML IVPB SCH ×2 (13:26→17:59)
[2023-06-08] MEDS: D5-1/2NS+20 MEQ KCL - 20 MEQ/1,000 ML INFUS.BAG IV SCH (15:53)
[2023-06-08] MEDS: ALBUTEROL SO4 2.5/IPRATROPIUM 0.5 INH SOL 3 ML VIAL.NEB. NEB SCH (20:02)
[2023-06-08] MEDS: ATORVASTATIN CA 20 MG TABLET (FP) PO SCH (22:49)
[2023-06-08] MEDS: BUDESONIDE/FORMETEROL FUMARATE 160/4.5 mcg INHALER IH SCH (22:50)
[2023-06-09] MEDS: PIPERACILLIN/TAZOB 4.5 GM 4.5 GM in DEXTROSE 5%-WATER 100 ML IVPB SCH ×3 (02:47→18:03)
[2023-06-09] MEDS: morphine SULFATE 4 MG/ML VIAL IVPUSH PRN ×3 (02:49→17:01)
[2023-06-09] MEDS: D5-1/2NS+20 MEQ KCL - 20 MEQ/1,000 ML INFUS.BAG IV SCH ×2 (05:11→17:03)
[2023-06-09] MEDS: ALBUTEROL SO4 2.5/IPRATROPIUM 0.5 INH SOL 3 ML VIAL.NEB. NEB SCH ×4 (08:10→20:29)
[2023-06-09 09:24] LABS: BASO % 0.4 % (0-2.0); EOS % 1.6 % (0-4.5); HEMATOCRIT 42.2 % (35.4-49); HEMOGLOBIN 13.9 GM/dL (11.7-16.9); LYMPH % 11.3 % (8-40); MCH 27.8 pg (25.7-33.7); MEAN CELL VOLUME 84.4 fl (80-96); MEAN PLT VOLUME 8.2 fl (7.5-11.1); MONO % 10.3 % (3.8-10.2); NEUT % 76.4 % (42.8-82.8); PLATELET COUNT 313 10^3/uL (134-434); RDW 14.9 % (11.9-15.9); WHITE BLOOD COUNT 12.6 K/mm3 (4.0-10.0)
[2023-06-09 09:49] LABS: POTASSIUM 3.9 mmol/L (3.5-5.1)
[2023-06-09] MEDS: PANTOPRAZOLE SODIUM 40 MG VIAL IVPUSH SCH (09:50)
[2023-06-09 10:01] LABS: ALBUMIN 2.8 g/dl (3.4-5.0); BLOOD UREA NITROGEN 9.7 mg/dL (7-18)
[2023-06-09 10:04] LABS: TOT PROT 5.4 g/dl (6.4-8.2)
[2023-06-09 10:06] LABS: BILIRUBIN,TOTAL 1.1 mg/dL (0.2-1)
[2023-06-09] MEDS: BUDESONIDE/FORMETEROL FUMARATE 160/4.5 mcg INHALER IH SCH ×2 (12:59→21:57)
[2023-06-09] MEDS: ATORVASTATIN CA 20 MG TABLET (FP) PO SCH (21:57)
[2023-06-10] MEDS ORDERED: PIPERACILLIN/TAZOBACTAM 4.5 GM VIAL IVPB ONE (00:49)
[2023-06-10] MEDS: morphine SULFATE 4 MG/ML VIAL IVPUSH PRN ×3 (00:52→21:45)
[2023-06-10] MEDS: PIPERACILLIN/TAZOB 4.5 GM 4.5 GM in DEXTROSE 5%-WATER 100 ML IVPB SCH ×3 (01:04→17:01)
[2023-06-10] MEDS: D5-1/2NS+20 MEQ KCL - 20 MEQ/1,000 ML INFUS.BAG IV SCH ×2 (07:25→17:01)
[2023-06-10] MEDS: ALBUTEROL SO4 2.5/IPRATROPIUM 0.5 INH SOL 3 ML VIAL.NEB. NEB SCH ×4 (07:35→20:00)
[2023-06-10 08:21] LABS: BASO % 0.3 % (0-2.0); HEMATOCRIT 41.9 % (35.4-49); HEMOGLOBIN 13.8 GM/dL (11.7-16.9); LYMPH % 11.9 % (8-40); MCH 27.8 pg (25.7-33.7); MCHC 32.9 g/dl (32.0-35.9); MEAN CELL VOLUME 84.5 fl (80-96); MEAN PLT VOLUME 8.2 fl (7.5-11.1); MONO % 11.8 % (3.8-10.2); PLATELET COUNT 311 10^3/uL (134-434); RBC 4.96 M/mm3 (4.00-5.60); RDW 14.5 % (11.9-15.9); WHITE BLOOD COUNT 15.4 K/mm3 (4.0-10.0)
[2023-06-10 08:23] LABS: POTASSIUM 3.9 mmol/L (3.5-5.1)
[2023-06-10 08:30] LABS: BLOOD UREA NITROGEN 6.3 mg/dL (7-18)
[2023-06-10] MEDS: PANTOPRAZOLE SODIUM 40 MG VIAL IVPUSH SCH (09:07)
[2023-06-10] MEDS: BUDESONIDE/FORMETEROL FUMARATE 160/4.5 mcg INHALER IH SCH ×2 (09:10→21:45)
[2023-06-10] MEDS: ATORVASTATIN CA 20 MG TABLET (FP) PO SCH (21:45)
[2023-06-11] MEDS: PIPERACILLIN/TAZOB 4.5 GM 4.5 GM in DEXTROSE 5%-WATER 100 ML IVPB SCH ×2 (01:30→09:11)
[2023-06-11] MEDS: ALBUTEROL SO4 2.5/IPRATROPIUM 0.5 INH SOL 3 ML VIAL.NEB. NEB SCH ×3 (08:45→16:14)
[2023-06-11] MEDS: PANTOPRAZOLE SODIUM 40 MG VIAL IVPUSH SCH (09:11)
[2023-06-11] MEDS: BUDESONIDE/FORMETEROL FUMARATE 160/4.5 mcg INHALER IH SCH (09:16)
[2023-06-11 09:25] LABS: BASO % 0.4 % (0-2.0); EOS % 1.8 % (0-4.5); HEMATOCRIT 44.6 % (35.4-49); HEMOGLOBIN 14.3 GM/dL (11.7-16.9); LYMPH % 15.1 % (8-40); MEAN CELL VOLUME 84.5 fl (80-96); MEAN PLT VOLUME 8.1 fl (7.5-11.1); NEUT % 73.7 % (42.8-82.8); PLATELET COUNT 329 10^3/uL (134-434); RBC 5.28 M/mm3 (4.00-5.60); WHITE BLOOD COUNT 13.9 K/mm3 (4.0-10.0)
[2023-06-11 09:40] LABS: POTASSIUM 3.8 mmol/L (3.5-5.1)
[2023-06-11 09:49] LABS: CALCIUM 8.3 mg/dL (8.5-10.1)
[2023-06-11 09:50] LABS: BLOOD UREA NITROGEN 5.8 mg/dL (7-18)
[2023-06-11 09:54] LABS: CREATININE 1.2 mg/dL (0.55-1.3)
[2023-06-11] MEDS: D5-1/2NS+20 MEQ KCL - 20 MEQ/1,000 ML INFUS.BAG IV SCH ×2 (10:58→16:52)
[2023-06-11 13:34] VITALS: BP 97/68; PULSE 103; TEMP 98.5
== END 2023-06-11 17:50 | disposition home health service (06) | DRG 392 ==
LOC: JER 16:11 → JERBED 22:55 → J6S 06-08 03:10
PROVIDERS: ADMIT Internal Medicine; ATTEND Family Medicine
DX: K57.32 Diverticulitis of large intestine without perforation or abscess without bleeding (principal); I50.32 Chronic diastolic (congestive) heart failure; Z68.42 Body mass index [BMI] 45.0-49.9, adult; J45.909 Unspecified asthma, uncomplicated; E66.01 Morbid (severe) obesity due to excess calories; F40.240 Claustrophobia; F22 Delusional disorders; K21.9 Gastro-esophageal reflux disease without esophagitis; G47.33 Obstructive sleep apnea (adult) (pediatric); D72.829 Elevated white blood cell count, unspecified; F31.9 Bipolar disorder, unspecified
CPT/HCPCS: 0241U-QW; 36415; 74177-TC; 80048; 80053; 81003; 83690; 85025; 86140; 87040; 93005; 93010; 94640; 99285-25; Q9967

== ENCOUNTER 2023-08-19 20:42 | Observation (INO) | payer OTHER ==
[2023-08-19] MEDS ORDERED: ACETAMINOPHEN INJECTION 100 ML IVPB ONE (21:43)
[2023-08-19] MEDS: ACETAMINOPHEN 1000 MG/100 ML BAG IVPB ONE (22:26)
[2023-08-19 22:27] LABS: BASO % 1.7 % (0-2.0); EOS % 1.8 % (0-4.5); HEMATOCRIT 45.8 % (35.4-49); HEMOGLOBIN 14.9 GM/dL (11.7-16.9); LYMPH % 23.6 % (8-40); MCH 27.6 pg (25.7-33.7); MCHC 32.5 g/dl (32.0-35.9); MEAN CELL VOLUME 85.1 fl (80-96); MEAN PLT VOLUME 8.4 fl (7.5-11.1); MONO % 10.2 % (3.8-10.2); NEUT % 62.7 % (42.8-82.8); PLATELET COUNT 333 10^3/uL (134-434); RBC 5.39 M/mm3 (4.00-5.60); RDW 15.5 % (11.9-15.9); WHITE BLOOD COUNT 11.8 K/mm3 (4.0-10.0)
[2023-08-19 22:59] LABS: POTASSIUM 5.1 mmol/L (3.5-5.1)
[2023-08-19 23:01] LABS: ALBUMIN 3.7 g/dl (3.4-5.0); BLOOD UREA NITROGEN 12.3 mg/dL (7-18); CALCIUM 8.9 mg/dL (8.5-10.1); MAGNESIUM 2.4 mg/dL (1.8-2.4)
[2023-08-19 23:04] LABS: CREATININE 0.9 mg/dL (0.55-1.3)
[2023-08-19 23:06] LABS: BILIRUBIN,TOTAL 0.5 mg/dL (0.2-1); TOT PROT 7.3 g/dl (6.4-8.2)
[2023-08-19 23:09] LABS: N-TERMINAL BNP 41.3 pg/ml (5-125)
[2023-08-20 00:29] LABS: URINE APPEARANCE CLEAR; URINE BILIRUBIN NEGATIVE (NEGATIVE); URINE COLOR YELLOW; URINE GLUCOSE (UA) NEGATIVE (NEGATIVE); URINE KETONE TRACE (NEGATIVE); URINE LEUK ESTERASE NEGATIVE (NEGATIVE); URINE NITRITE NEGATIVE (NEGATIVE); URINE PROTEIN NEGATIVE (NEGATIVE); URINE UROBILINOGEN 0.2 mg/dL (0.2-1.0)
[2023-08-20] MEDS: SODIUM CHLORIDE 0.9% 500 ML INFUS.BAG IV ONE (00:51)
[2023-08-20] MEDS ORDERED: AMOX TR/POT CLAV 875MG/125MG TABLETS (FP) ONE (02:02)
[2023-08-20] MEDS: AMOX TR/POT CLAV 875MG/125MG TABLETS (FP) PO ONE (02:04)
[2023-08-20] MEDS ORDERED: PIPERACILLIN/TAZOB 3.375 GM 3.375 GM/50 ML BAG IVPB ONE ×3 (04:58→16:49)
[2023-08-20] MEDS: PIPERACILLIN/TAZOB 3.375 GM 3.375 GM in DEXTROSE 5%-WATER - 50 ML IVPB SCH (05:14)
[2023-08-20] MEDS ORDERED: ACETAMINOPHEN INJECTION 100 ML IVPB ONE (05:53)
[2023-08-20] MEDS: ACETAMINOPHEN 1000 MG/100 ML BAG IVPB PRN (06:04)
[2023-08-20] MEDS ORDERED: traMADol HCL 50 MG TABLET PO PRN (06:14)
[2023-08-20] MEDS: GABAPENTIN 300 MG CAPSULE PO SCH (06:47)
[2023-08-20] MEDS ORDERED: PATIENT'S OWN MEDICATION (NON-FORMULARY) (Linaclotide 145 MCG Capsule) PO SCH (07:00)
[2023-08-20 07:11] LABS: BASO % 0.5 % (0-2.0); EOS % 1.7 % (0-4.5); HEMATOCRIT 41.8 % (35.4-49); HEMOGLOBIN 13.6 GM/dL (11.7-16.9); MCH 27.7 pg (25.7-33.7); MCHC 32.5 g/dl (32.0-35.9); MEAN CELL VOLUME 85.3 fl (80-96); MEAN PLT VOLUME 8.6 fl (7.5-11.1); MONO % 10.8 % (3.8-10.2); PLATELET COUNT 308 10^3/uL (134-434); RDW 15.1 % (11.9-15.9); WHITE BLOOD COUNT 10.8 K/mm3 (4.0-10.0)
[2023-08-20 07:19] LABS: INR 1.15 (0.83-1.09); PROTHROMBIN TIME (PATIENT) 13.3 SEC (9.7-13.0)
[2023-08-20 07:21] LABS: ACTIVATED PTT 33.9 SECONDS (25.2-36.5)
[2023-08-20 07:21] LABS: POTASSIUM 4.1 mmol/L (3.5-5.1)
[2023-08-20 07:23] LABS: CALCIUM 9.2 mg/dL (8.5-10.1)
[2023-08-20 07:24] LABS: BLOOD UREA NITROGEN 10.6 mg/dL (7-18)
[2023-08-20 07:27] LABS: CREATININE 0.8 mg/dL (0.55-1.3); PHOSPHOROUS 3.7 mg/dL (2.5-4.9)
[2023-08-20] MEDS ORDERED: ALBUTEROL SO4 2.5/IPRATROPIUM 0.5 INH SOL 3 ML VIAL.NEB. NEB PRN (07:39)
[2023-08-20] MEDS ORDERED: ASPIRIN 81 MG CHEWABLE TABLETS ONE (09:15)
[2023-08-20] MEDS ORDERED: TOPIRAMATE 100 MG TABLET ONE (09:15)
[2023-08-20] MEDS: TOPIRAMATE 100 MG TABLET PO SCH (09:40)
[2023-08-20] MEDS: ASPIRIN 81 MG CHEWABLE TABLETS PO SCH (09:40)
[2023-08-20] MEDS: FENOFIBRIC ACID 135 MG CAP PO SCH (09:40)
[2023-08-20] MEDS: PANTOPRAZOLE 40 MG TABLET PO SCH (09:40)
[2023-08-20] MEDS: BUDESONIDE/FORMETEROL FUMARATE 160/4.5 mcg INHALER IH SCH (09:40)
[2023-08-20] MEDS ORDERED: PATIENT'S OWN MEDICATION (NON-FORMULARY) (Tizanidine Hcl [Tizanidine Hcl] 4 MG Tablet) PO SCH (14:00)
[2023-08-20] MEDS ORDERED: GABAPENTIN 300 MG CAPSULE ONE (14:21)
[2023-08-20] MEDS: PIPERACILLIN/TAZOB 4.5 GM 4.5 GM in DEXTROSE 5%-WATER 100 ML IVPB SCH (17:18)
[2023-08-20 19:54] VITALS: BMI 45.8
[2023-08-20] MEDS ORDERED: traZODone HCL 50 MG TABLET (FP) ONE (21:49)
[2023-08-20] MEDS: MONTELUKAST NA 10 MG TABLET PO SCH (21:52)
[2023-08-20] MEDS: traZODone HCL 100 MG TABLET (FP) PO SCH (21:52)
[2023-08-20] MEDS: ATORVASTATIN CA 20 MG TABLET (FP) PO SCH (21:52)
[2023-08-20] MEDS: rOPINIRole HCL 2 MG TABLET (FP) PO SCH (23:06)
[2023-08-21] MEDS ORDERED: PIPERACILLIN/TAZOB 3.375 GM 3.375 GM in DEXTROSE 5%-WATER - 50 ML IVPB SCH (02:00)
[2023-08-21] MEDS ORDERED: ACETAMINOPHEN 325 MG TABLET (FP) PO PRN ×2 (04:30)
[2023-08-21 07:07] LABS: BASO % 0.3 % (0-2.0); EOS % 2.7 % (0-4.5); HEMATOCRIT 41.7 % (35.4-49); HEMOGLOBIN 13.7 GM/dL (11.7-16.9); LYMPH % 21.1 % (8-40); MCHC 32.8 g/dl (32.0-35.9); MEAN CELL VOLUME 85.2 fl (80-96); MEAN PLT VOLUME 8.4 fl (7.5-11.1); MONO % 8.7 % (3.8-10.2); NEUT % 67.2 % (42.8-82.8); PLATELET COUNT 329 10^3/uL (134-434); RDW 15.3 % (11.9-15.9)
[2023-08-21 07:16] LABS: POTASSIUM 4.1 mmol/L (3.5-5.1)
[2023-08-21 07:29] LABS: ALBUMIN 3.1 g/dl (3.4-5.0); CALCIUM 9.3 mg/dL (8.5-10.1)
[2023-08-21 07:30] LABS: BLOOD UREA NITROGEN 8.6 mg/dL (7-18)
[2023-08-21 07:33] LABS: CREATININE 0.9 mg/dL (0.55-1.3)
[2023-08-21 07:34] LABS: BILIRUBIN,TOTAL 0.6 mg/dL (0.2-1); TOT PROT 5.9 g/dl (6.4-8.2)
[2023-08-21 08:59] VITALS: RESP 20
[2023-08-21] MEDS: DOCUSATE SODIUM 100 MG CAPSULE (FP) PO PRN (21:02)
[2023-08-21] MEDS: TOPIRAMATE 100 MG TABLET PO SCH (21:02)
[2023-08-21] MEDS: BUDESONIDE/FORMETEROL FUMARATE 160/4.5 mcg INHALER IH SCH (21:03)
[2023-08-22 06:40] LABS: BASO % 0.4 % (0-2.0); EOS % 3.1 % (0-4.5); HEMATOCRIT 41.2 % (35.4-49); HEMOGLOBIN 13.6 GM/dL (11.7-16.9); LYMPH % 21.2 % (8-40); MCH 28.4 pg (25.7-33.7); MONO % 9.1 % (3.8-10.2); NEUT % 66.2 % (42.8-82.8); PLATELET COUNT 327 10^3/uL (134-434); RBC 4.79 M/mm3 (4.00-5.60); RDW 14.9 % (11.9-15.9); WHITE BLOOD COUNT 11.9 K/mm3 (4.0-10.0)
[2023-08-22 07:19] LABS: POTASSIUM 4.3 mmol/L (3.5-5.1)
[2023-08-22 07:23] LABS: CALCIUM 9.4 mg/dL (8.5-10.1)
[2023-08-22 08:20] VITALS: BP 106/76; PULSE 73; TEMP 98.7
[2023-08-22 12:53] LABS: BASO % 0.6 % (0-2.0); EOS % 3.3 % (0-4.5); HEMOGLOBIN 15.1 GM/dL (11.7-16.9); LYMPH % 20.5 % (8-40); MCHC 32.7 g/dl (32.0-35.9); MEAN CELL VOLUME 85.6 fl (80-96); MEAN PLT VOLUME 8.5 fl (7.5-11.1); MONO % 10.1 % (3.8-10.2); NEUT % 65.5 % (42.8-82.8); PLATELET COUNT 369 10^3/uL (134-434); RBC 5.38 M/mm3 (4.00-5.60); RDW 15.5 % (11.9-15.9); WHITE BLOOD COUNT 10.7 K/mm3 (4.0-10.0)
== END 2023-08-22 14:00 | disposition home or self-care (01) ==
LOC: JER 20:42 → JERBED 08-20 02:07 → J4W 08-20 18:35
PROVIDERS: ADMIT Internal Medicine; ATTEND Internal Medicine
PROC: 3E033NZ Introduction of Analgesics, Hypnotics, Sedatives into Peripheral Vein, Percutaneous Approach (ICD-10-PCS; principal; 2023-08-20)
PROC: 3E03329 Introduction of Other Anti-infective into Peripheral Vein, Percutaneous Approach (ICD-10-PCS; 2023-08-20)
PROC: 3E0337Z Introduction of Electrolytic and Water Balance Substance into Peripheral Vein, Percutaneous Approach (ICD-10-PCS; 2023-08-20)
DX: K57.92 Diverticulitis of intestine, part unspecified, without perforation or abscess without bleeding (principal); J44.89 Other specified chronic obstructive pulmonary disease; E78.5 Hyperlipidemia, unspecified; E66.01 Morbid (severe) obesity due to excess calories; F31.9 Bipolar disorder, unspecified; F41.8 Other specified anxiety disorders; F40.240 Claustrophobia; M48.061 Spinal stenosis, lumbar region without neurogenic claudication; Z98.84 Bariatric surgery status; Z90.49 Acquired absence of other specified parts of digestive tract; R07.9 Chest pain, unspecified; Z91.013 Allergy to seafood; Z87.891 Personal history of nicotine dependence; G47.33 Obstructive sleep apnea (adult) (pediatric); G43.909 Migraine, unspecified, not intractable, without status migrainosus; Z68.42 Body mass index [BMI] 45.0-49.9, adult
CPT/HCPCS: 0241U-QW; 36415; 71046-TC-FY; 74177-TC; 80048; 80053; 80061; 81003; 83036; 83735; 83880; 84100; 84443; 84484; 85025; 85610; 85730; 86140; 87086; 93005; 93010; 93306-TC; 96365; 96366; 96375; 96376; 99285-25; G0378; J0131

== ENCOUNTER 2023-09-15 18:59 | Emergency (ER) | payer OTHER ==
[2023-09-15 19:05] VITALS: RESP 17; BMI 45.9
[2023-09-15] MEDS ORDERED: ALBUTEROL SO4 2.5/IPRATROPIUM 0.5 INH SOL 3 ML VIAL.NEB. NEB ONE (20:55)
[2023-09-15] MEDS: ALBUTEROL SO4 2.5/IPRATROPIUM 0.5 INH SOL 3 ML VIAL.NEB. NEB SCH (20:59)
[2023-09-15 21:14] LABS: POTASSIUM 4.3 mmol/L (3.5-5.1)
[2023-09-15 21:19] LABS: ALBUMIN 3.4 g/dl (3.4-5.0); BLOOD UREA NITROGEN 22.6 mg/dL (7-18); CALCIUM 9.1 mg/dL (8.5-10.1)
[2023-09-15 21:22] LABS: CREATININE 1.2 mg/dL (0.55-1.3)
[2023-09-15 21:24] LABS: BILIRUBIN,TOTAL 0.3 mg/dL (0.2-1); TOT PROT 6.4 g/dl (6.4-8.2)
[2023-09-15 21:27] LABS: N-TERMINAL BNP 102.5 pg/ml (5-125)
[2023-09-15 22:11] LABS: HEMATOCRIT 44.5 % (35.4-49); MCHC 31.5 g/dl (32.0-35.9); MEAN CELL VOLUME 85.8 fl (80-96); MEAN PLT VOLUME 9.8 fl (7.5-11.1); PLATELET COUNT 321 10^3/uL (134-434); RBC 5.19 M/mm3 (4.00-5.60); RDW 15.3 % (11.9-15.9); WHITE BLOOD COUNT 22.8 K/mm3 (4.0-10.0)
[2023-09-15 22:14] LABS: INR 1.02 (0.83-1.09); PROTHROMBIN TIME (PATIENT) 11.8 SEC (9.7-13.0)
[2023-09-15 22:17] LABS: ACTIVATED PTT 24.9 SECONDS (25.2-36.5)
[2023-09-15 22:41] VITALS: BP 115/68; PULSE 107; TEMP 98.3
[2023-09-15 23:08] LABS: ANISOCYTOSIS 1+; MACROCYTOSIS 0
[2023-09-15 23:13] LABS: PLATELET ESTIMATE ADEQUATE
== END 2023-09-15 22:59 | disposition home or self-care (01) ==
LOC: JER 18:59
PROC: 3E0F7GC Introduction of Other Therapeutic Substance into Respiratory Tract, Via Natural or Artificial Opening (ICD-10-PCS; principal; 2023-09-15)
DX: R06.02 Shortness of breath (principal)
CPT/HCPCS: 36415; 71046-TC-FY; 80053; 83880; 84484; 85025; 85610; 85730; 93005; 93010; 94640; 99285-25

== ENCOUNTER 2023-10-19 23:08 | Observation (INO) | payer OTHER ==
[2023-10-20 00:53] LABS: INR 1.05 (0.83-1.09); PROTHROMBIN TIME (PATIENT) 12.2 SEC (9.7-13.0)
[2023-10-20 00:56] LABS: ACTIVATED PTT 30.5 SECONDS (25.2-36.5)
[2023-10-20 01:06] LABS: CHLORIDE 110 mmol/L (98-107); POTASSIUM 4.2 mmol/L (3.5-5.1); SODIUM 141 mmol/L (136-145)
[2023-10-20 01:08] LABS: BLOOD UREA NITROGEN 15.1 mg/dL (7-18)
[2023-10-20 01:09] LABS: ALBUMIN 3.5 g/dl (3.4-5.0); ANION GAP 3 mmol/L (4-13); CO2 28 mmol/L (21-32); GLUCOSE,RANDOM 81 mg/dL (74-106); MAGNESIUM 2.2 mg/dL (1.8-2.4)
[2023-10-20 01:10] LABS: SGPT/ALT 16 U/L (13-61)
[2023-10-20 01:12] LABS: CREATININE 1.1 mg/dL (0.55-1.3); SGOT/AST 20 U/L (15-37)
[2023-10-20 01:13] LABS: BILIRUBIN,TOTAL 0.4 mg/dL (0.2-1); TOT PROT 6.2 g/dl (6.4-8.2)
[2023-10-20 01:14] LABS: ALK PHOS 58 U/L (45-117)
[2023-10-20 01:31] LABS: BASO % 0.7 % (0-2.0); EOS % 1.1 % (0-4.5); HEMATOCRIT 45.2 % (35.4-49); HEMOGLOBIN 14.5 GM/dL (11.7-16.9); LYMPH % 20.9 % (8-40); MCH 26.7 pg (25.7-33.7); MEAN CELL VOLUME 83.3 fl (80-96); MEAN PLT VOLUME 9.1 fl (7.5-11.1); MONO % 10.6 % (3.8-10.2); NEUT % 66.7 % (42.8-82.8); PLATELET COUNT 260 10^3/uL (134-434); RBC 5.43 M/mm3 (4.00-5.60); RDW 15.1 % (11.9-15.9)
[2023-10-20] MEDS ORDERED: METOCLOPRAMIDE HCL INJECTION 10 MG/2 ML VIAL ONE (02:47)
[2023-10-20] MEDS ORDERED: ACETAMINOPHEN INJECTION 100 ML IVPB ONE (02:47)
[2023-10-20] MEDS: ACETAMINOPHEN 1000 MG/100 ML BAG IVPB ONE (03:15)
[2023-10-20] MEDS: METOCLOPRAMIDE HCL INJECTION 10 MG/2 ML VIAL IVPB ONE (04:20)
[2023-10-20 05:06] LABS: CHOLESTEROL 85 mg/dL (50-200)
[2023-10-20 05:07] LABS: LDL CHOLESTEROL (ONLY SJRH) 41 mg/dL (5-100)
[2023-10-20 05:09] LABS: HDL CHOLESTEROL 40 mg/dL (40-60)
[2023-10-20 05:56] LABS: ERYTHROCYTE SEDIMENTATION RATE 2 mm/hr (0-20)
[2023-10-20] MEDS: TOPIRAMATE 100 MG TABLET PO SCH (10:21)
[2023-10-20] MEDS: BUDESONIDE/FORMETEROL FUMARATE 160/4.5 mcg INHALER IH SCH (11:14)
[2023-10-20] MEDS: ENOXAPARIN NA (PORCINE) 40 MG/0.4 ML DISP.SYRIN SQ SCH (11:14)
[2023-10-20 11:40] LABS: PH,URINE 6.5 (5.0-8.0); URINE APPEARANCE CLEAR; URINE BILIRUBIN NEGATIVE (NEGATIVE); URINE COLOR YELLOW; URINE GLUCOSE (UA) NEGATIVE (NEGATIVE); URINE KETONE NEGATIVE (NEGATIVE); URINE LEUK ESTERASE NEGATIVE (NEGATIVE); URINE NITRITE NEGATIVE (NEGATIVE); URINE PROTEIN NEGATIVE (NEGATIVE); URINE UROBILINOGEN 0.2 mg/dL (0.2-1.0)
[2023-10-20] MEDS: FUROSEMIDE 40 MG/4 ML INJECTABLE VIAL IVPUSH ONE (12:43)
[2023-10-20] MEDS: GABAPENTIN 300 MG CAPSULE PO SCH (13:17)
[2023-10-20 14:12] LABS: N-TERMINAL BNP 30.9 pg/ml (5-125)
[2023-10-20] MEDS: ACETAMINOPHEN 325 MG TABLET (FP) PO ONE (15:58)
[2023-10-20 18:01] VITALS: RESP 18
[2023-10-20] MEDS: ATORVASTATIN CA 20 MG TABLET (FP) PO SCH (21:43)
[2023-10-20] MEDS: rOPINIRole HCL 1 MG TABLET (FP) PO SCH (21:43)
[2023-10-21 09:08] VITALS: BP 127/75; PULSE 104; TEMP 97.7
[2023-10-21] MEDS: FUROSEMIDE 20 MG TABLET (FP) PO SCH (09:16)
[2023-10-21] MEDS: VENLAFAXINE HCL 75 MG E.R. CAPSULES PO SCH (09:16)
[2023-10-21 10:29] VITALS: BMI 47.7
== END 2023-10-21 13:20 | disposition home or self-care (01) ==
LOC: JER 23:08 → JERBED 10-20 03:22 → J4S 10-20 04:27
PROVIDERS: ADMIT Student in an Organized Health Care Education/Training Program; ATTEND Internal Medicine
PROC: 3E033NZ Introduction of Analgesics, Hypnotics, Sedatives into Peripheral Vein, Percutaneous Approach (ICD-10-PCS; principal; 2023-10-20)
PROC: 3E023GC Introduction of Other Therapeutic Substance into Muscle, Percutaneous Approach (ICD-10-PCS; 2023-10-20)
PROC: 3E033GC Introduction of Other Therapeutic Substance into Peripheral Vein, Percutaneous Approach (ICD-10-PCS; 2023-10-20)
DX: Z98.84 Bariatric surgery status (principal); E66.01 Morbid (severe) obesity due to excess calories; M19.90 Unspecified osteoarthritis, unspecified site; F31.9 Bipolar disorder, unspecified; F41.9 Anxiety disorder, unspecified; K57.90 Diverticulosis of intestine, part unspecified, without perforation or abscess without bleeding; F40.240 Claustrophobia; F22 Delusional disorders; I50.9 Heart failure, unspecified; G47.33 Obstructive sleep apnea (adult) (pediatric); E11.9 Type 2 diabetes mellitus without complications; J45.909 Unspecified asthma, uncomplicated; Z87.891 Personal history of nicotine dependence; Z90.49 Acquired absence of other specified parts of digestive tract; Z91.013 Allergy to seafood; Z99.81 Dependence on supplemental oxygen
CPT/HCPCS: 0241U-QW; 36415; 71045-TC-FY; 80053; 80061; 81003; 83735; 83880; 84484; 85025; 85379; 85610; 85651; 85730; 86140; 87040; 93005; 93010; 93970-TC; 96372; 96374; 96375; 99285-25; G0378; J0131

== ENCOUNTER 2024-03-25 15:37 | Emergency (ER) | payer OTHER ==
[2024-03-25 15:54] VITALS: RESP 18; BMI 43.8
[2024-03-25 17:20] LABS: BASO % 0.5 % (0-2.0); EOS % 1.2 % (0-4.5); HEMATOCRIT 43.1 % (35.4-49); HEMOGLOBIN 14.2 GM/dL (11.7-16.9); MCH 27.3 pg (25.7-33.7); MCHC 32.9 g/dl (32.0-35.9); MEAN PLT VOLUME 8.3 fl (7.5-11.1); MONO % 11.6 % (3.8-10.2); NEUT % 61.7 % (42.8-82.8); PLATELET COUNT 310 10^3/uL (134-434); RBC 5.19 M/mm3 (4.00-5.60); RDW 15.9 % (11.9-15.9); WHITE BLOOD COUNT 8.7 K/mm3 (4.0-10.0)
[2024-03-25 17:58] LABS: ALBUMIN 3.8 g/dl (3.4-5.0); BLOOD UREA NITROGEN 13.9 mg/dL (7-18)
[2024-03-25 18:00] LABS: CREATININE 1.3 mg/dL (0.55-1.3)
[2024-03-25 18:01] LABS: BILIRUBIN,TOTAL 0.5 mg/dL (0.2-1)
[2024-03-25 18:02] LABS: TOT PROT 6.6 g/dl (6.4-8.2)
[2024-03-25 18:16] LABS: N-TERMINAL BNP 48.6 pg/ml (5-125)
[2024-03-25 18:39] LABS: HIV INTERPRETATION NEGATIVE (NEGATIVE)
[2024-03-25 20:08] VITALS: BP 121/65; PULSE 87; TEMP 98
== END 2024-03-25 20:16 | disposition home or self-care (01) ==
LOC: JER 15:37
DX: R07.9 Chest pain, unspecified (principal); R00.2 Palpitations; R42 Dizziness and giddiness; R11.0 Nausea; R60.0 Localized edema
CPT/HCPCS: 36415; 71045-TC-FY; 80053; 83735; 83880; 85025; 86803; 87389; 93005; 93010; 99285-25

== ENCOUNTER 2024-05-22 12:21 | Emergency (ER) | payer OTHER ==
[2024-05-22 12:39] VITALS: RESP 17; BMI 44.6
[2024-05-22 14:12] LABS: EPI CELLS 5 /uL (0-25.1); HYALINE CASTS 1 /uL (0-3.1); PH,URINE 5.5 (5.0-8.0); URINE APPEARANCE CLEAR; URINE BACTERIA 8 /uL (0-1359); URINE BILIRUBIN NEGATIVE (NEGATIVE); URINE COLOR DK YELLOW; URINE GLUCOSE (UA) NEGATIVE (NEGATIVE); URINE KETONE TRACE (NEGATIVE); URINE LEUK ESTERASE NEGATIVE (NEGATIVE); URINE NITRITE NEGATIVE (NEGATIVE); URINE PROTEIN NEGATIVE (NEGATIVE); URINE RBC 256 /uL (0-23.9); URINE UROBILINOGEN 0.2 mg/dL (0.2-1.0); URINE WBC 12 /uL (0-25.8)
[2024-05-22 14:22] LABS: BASO % 0.3 % (0-2.0); EOS % 1.7 % (0-4.5); HEMATOCRIT 45.8 % (35.4-49); HEMOGLOBIN 14.5 GM/dL (11.7-16.9); MCH 26.8 pg (25.7-33.7); MCHC 31.6 g/dl (32.0-35.9); MEAN CELL VOLUME 84.8 fl (80-96); MEAN PLT VOLUME 8.6 fl (7.5-11.1); MONO % 9.6 % (3.8-10.2); NEUT % 69.4 % (42.8-82.8); PLATELET COUNT 305 10^3/uL (134-434); RDW 15.3 % (11.9-15.9)
[2024-05-22 14:35] LABS: POTASSIUM 4.4 mmol/L (3.5-5.1)
[2024-05-22 14:37] LABS: CALCIUM 9.4 mg/dL (8.5-10.1)
[2024-05-22 14:38] LABS: BLOOD UREA NITROGEN 14.1 mg/dL (7-18)
[2024-05-22 14:41] LABS: CREATININE 1.3 mg/dL (0.55-1.3)
[2024-05-22 14:42] LABS: BILIRUBIN,TOTAL 0.4 mg/dL (0.2-1); TOT PROT 6.8 g/dl (6.4-8.2)
[2024-05-22 15:49] LABS: HIV INTERPRETATION NEGATIVE (NEGATIVE)
[2024-05-22 17:35] VITALS: BP 104/61; PULSE 62; TEMP 98
[2024-05-22] MEDS ORDERED: TAMSULOSIN HCL 0.4 MG CAP ONE (17:58)
[2024-05-22] MEDS: TAMSULOSIN HCL 0.4 MG CAP PO ONE (18:05)
== END 2024-05-22 16:00 | disposition home or self-care (01) ==
LOC: JER 12:21
DX: R10.9 Unspecified abdominal pain (principal); M54.50 Low back pain, unspecified; R30.0 Dysuria; R39.11 Hesitancy of micturition
CPT/HCPCS: 36415; 74177-TC; 80053; 81003; 85025; 86803; 87086; 87389; 99285-25; Q9967

== ENCOUNTER 2024-08-11 03:39 | Inpatient (IN) | payer OTHER ==
[2024-08-11] MEDS ORDERED: ACETAMINOPHEN INJECTION 100 ML ONE (04:24)
[2024-08-11] MEDS ORDERED: ONDANSETRON 4 MG/2 ML VIAL ONE (04:24)
[2024-08-11] MEDS ORDERED: FAMOTIDINE 20 MG/50 ML IVPB 20 MG/50 ML MG IVPB ONE (04:24)
[2024-08-11] MEDS: ONDANSETRON 4 MG/2 ML VIAL IVPUSH ONE (04:33)
[2024-08-11] MEDS: FAMOTIDINE 20 MG/50 ML IVPB 20 MG/50 ML MG IVPB ONE (04:33)
[2024-08-11] MEDS: ACETAMINOPHEN 1000 MG/100 ML BAG IVPB ONE (04:33)
[2024-08-11 04:38] LABS: BASO % 0.2 % (0-2.0); EOS % 0.2 % (0-4.5); HEMATOCRIT 43.7 % (35.4-49); HEMOGLOBIN 14.3 GM/dL (11.7-16.9); MCH 27.3 pg (25.7-33.7); MCHC 32.7 g/dl (32.0-35.9); MEAN CELL VOLUME 83.7 fl (80-96); MEAN PLT VOLUME 8.2 fl (7.5-11.1); MONO % 7.1 % (3.8-10.2); NEUT % 88.5 % (42.8-82.8); PLATELET COUNT 315 10^3/uL (134-434); RBC 5.22 M/mm3 (4.00-5.60); RDW 15.2 % (11.9-15.9); WHITE BLOOD COUNT 19.6 K/mm3 (4.0-10.0)
[2024-08-11 04:57] LABS: POTASSIUM 4.6 mmol/L (3.5-5.1)
[2024-08-11 04:59] LABS: CALCIUM 9.3 mg/dL (8.5-10.1)
[2024-08-11 05:00] LABS: ALBUMIN 3.7 g/dl (3.4-5.0); BLOOD UREA NITROGEN 18.3 mg/dL (7-18)
[2024-08-11 05:03] LABS: CREATININE 1.2 mg/dL (0.55-1.3)
[2024-08-11 05:04] LABS: BILIRUBIN,TOTAL 0.6 mg/dL (0.2-1); TOT PROT 6.5 g/dl (6.4-8.2)
[2024-08-11 05:19] LABS: LACTIC ACID 2.5 mmol/L (0.4-2.0)
[2024-08-11 05:28] LABS: INR 1.13 (0.83-1.09); PROTHROMBIN TIME (PATIENT) 12.4 SEC (9.7-13.0)
[2024-08-11 05:31] LABS: ACTIVATED PTT 28.3 SECONDS (25.2-36.5)
[2024-08-11] MEDS ORDERED: KETOROLAC TROMETHAMINE 15 MG/ML VIAL ONE (08:08)
[2024-08-11] MEDS: KETOROLAC TROMETHAMINE 15 MG/ML VIAL IVPUSH ONE (08:13)
[2024-08-11] MEDS: LACTATED RINGERS SOLUTION 1000 ML INFUS.BAG IV ONE (08:13)
[2024-08-11] MEDS: FOLIC ACID INJECTION - 1 MG, THIAMINE HCL 100 MG, MULTIVIT INJECTION ADULT 10 ML in SOD... IVPB ONE (09:37)
[2024-08-11] MEDS: LACTATED RINGERS SOLUTION 1000 ML INFUS.BAG IV SCH (09:37)
[2024-08-11 13:02] LABS: BASO % 0.3 % (0-2.0); HEMOGLOBIN 12.5 GM/dL (11.7-16.9); LYMPH % 13.8 % (8-40); MCH 26.8 pg (25.7-33.7); MCHC 32.1 g/dl (32.0-35.9); MEAN CELL VOLUME 83.6 fl (80-96); MEAN PLT VOLUME 8.1 fl (7.5-11.1); MONO % 10.2 % (3.8-10.2); NEUT % 74.7 % (42.8-82.8); PLATELET COUNT 270 10^3/uL (134-434); RBC 4.67 M/mm3 (4.00-5.60); RDW 15.5 % (11.9-15.9); WHITE BLOOD COUNT 15.2 K/mm3 (4.0-10.0)
[2024-08-11] MEDS: ACETAMINOPHEN 1000 MG/100 ML BAG IVPB PRN (15:55)
[2024-08-11] MEDS: CEFTRIAXONE 1 G/50 ML PREMIX 50 ML IVPB SCH (16:18)
[2024-08-11] MEDS: PANTOPRAZOLE SODIUM 40 MG VIAL IVPUSH SCH (16:18)
[2024-08-11 16:43] VITALS: BMI 47.0
[2024-08-11] MEDS ORDERED: HYDROmorphone HCl 2 MG/ML VIAL IVPUSH PRN (16:48)
[2024-08-11] MEDS ORDERED: LORazepam 2 MG/ML SDV VIAL IVPUSH PRN (16:59)
[2024-08-11] MEDS: LACTATED RINGERS SOLUTION 1,000 ML/1,000 ML INFUS.BAG IV SCH (18:53)
[2024-08-11] MEDS: BUDESONIDE/FORMETEROL FUMARATE 160/4.5 mcg INHALER IH SCH (21:22)
[2024-08-11] MEDS: FAMOTIDINE 20 MG/50 ML IVPB 20 MG/50 ML MG IVPB SCH (21:22)
[2024-08-11] MEDS: LACTATED RINGERS SOLUTION 1,000 ML IV SCH (21:23)
[2024-08-12] MEDS: HYDROmorphone HCL CARPU-JECT 2 MG/1 ML DISP.SYRIN IVPB PRN (00:26)
[2024-08-12 08:10] LABS: BASO % 0.7 % (0-2.0); EOS % 1.7 % (0-4.5); HEMATOCRIT 42.1 % (35.4-49); HEMOGLOBIN 13.4 GM/dL (11.7-16.9); LYMPH % 13.8 % (8-40); MCH 27.1 pg (25.7-33.7); MCHC 31.8 g/dl (32.0-35.9); MEAN CELL VOLUME 85.3 fl (80-96); MEAN PLT VOLUME 8.7 fl (7.5-11.1); MONO % 7.6 % (3.8-10.2); NEUT % 76.2 % (42.8-82.8); PLATELET COUNT 285 10^3/uL (134-434); RBC 4.93 M/mm3 (4.00-5.60); RDW 15.3 % (11.9-15.9); WHITE BLOOD COUNT 15.6 K/mm3 (4.0-10.0)
[2024-08-12 08:19] LABS: POTASSIUM 4.1 mmol/L (3.5-5.1)
[2024-08-12 08:22] LABS: ALBUMIN 3.4 g/dl (3.4-5.0); BLOOD UREA NITROGEN 12.2 mg/dL (7-18); CALCIUM 8.8 mg/dL (8.5-10.1)
[2024-08-12 08:23] LABS: MAGNESIUM 1.9 mg/dL (1.8-2.4)
[2024-08-12 08:26] LABS: CREATININE 1.1 mg/dL (0.55-1.3)
[2024-08-12 08:27] LABS: BILIRUBIN,TOTAL 1.2 mg/dL (0.2-1)
[2024-08-12] MEDS: ONDANSETRON 4 MG/2 ML VIAL IVPUSH PRN (09:34)
[2024-08-12] MEDS: ENOXAPARIN NA (PORCINE) 40 MG/0.4 ML DISP.SYRIN SQ SCH (10:57)
[2024-08-12] MEDS: MAGNESIUM OXIDE 400 MG TABLET (FP) PO ONE (12:10)
[2024-08-12] MEDS: HYDROmorphone HCL CARPU-JECT 2 MG/1 ML DISP.SYRIN IVPUSH PRN (20:14)
[2024-08-12] MEDS: traZODone HCL 100 MG TABLET (FP) PO SCH (21:52)
[2024-08-12] MEDS: ATORVASTATIN CA 80 MG TABLET (FP) PO SCH (21:52)
[2024-08-12] MEDS: PERPHENAZINE 4 MG TABLET PO SCH (21:53)
[2024-08-12] MEDS: VENLAFAXINE HCL 150 MG E.R. CAPSULE PO SCH (23:39)
[2024-08-13 01:24] VITALS: RESP 18
[2024-08-13] MEDS: ACETAMINOPHEN 325 MG TABLET (FP) PO ONE (06:15)
[2024-08-13 08:53] LABS: BASO % 0.4 % (0-2.0); EOS % 3.5 % (0-4.5); HEMATOCRIT 38.3 % (35.4-49); HEMOGLOBIN 12.6 GM/dL (11.7-16.9); LYMPH % 18.7 % (8-40); MCH 27.7 pg (25.7-33.7); MCHC 32.9 g/dl (32.0-35.9); MEAN PLT VOLUME 9.2 fl (7.5-11.1); MONO % 9.9 % (3.8-10.2); NEUT % 67.5 % (42.8-82.8); PLATELET COUNT 232 10^3/uL (134-434); RBC 4.56 M/mm3 (4.00-5.60); RDW 15.3 % (11.9-15.9)
[2024-08-13 09:13] LABS: POTASSIUM 3.6 mmol/L (3.5-5.1)
[2024-08-13 09:15] LABS: CALCIUM 8.8 mg/dL (8.5-10.1)
[2024-08-13 09:16] LABS: ALBUMIN 3.1 g/dl (3.4-5.0); BLOOD UREA NITROGEN 8.3 mg/dL (7-18)
[2024-08-13 09:19] LABS: CREATININE 0.9 mg/dL (0.55-1.3)
[2024-08-13 09:20] LABS: BILIRUBIN,TOTAL 0.7 mg/dL (0.2-1)
[2024-08-13 09:21] LABS: TOT PROT 5.6 g/dl (6.4-8.2)
[2024-08-13] MEDS: FENOFIBRIC ACID 135 MG CAP PO SCH (09:45)
[2024-08-13] MEDS: VALSARTAN 80 MG TABLET PO SCH (09:45)
[2024-08-13] MEDS: VENLAFAXINE HCL 75 MG E.R. CAPSULES PO SCH (09:45)
[2024-08-13] MEDS: NEBIVOLOL 5 MG TABLET (FP) PO SCH (09:46)
[2024-08-13] MEDS: rOPINIRole HCL 1 MG TABLET (FP) PO SCH (09:46)
[2024-08-13] MEDS ORDERED: PATIENT'S OWN MEDICATION (NON-FORMULARY) (Linaclotide 145 MCG Capsule) PO SCH (10:00)
[2024-08-13] MEDS: POLYETHYLENE GLYCOL (HEALTHYLAX) 3350 17 GM PACKET PO SCH (21:29)
[2024-08-13] MEDS: FAMOTIDINE 20 MG TABLET PO SCH (21:30)
[2024-08-13] MEDS: rOPINIRole HCL 2 MG TABLET (FP) PO SCH (21:33)
[2024-08-14] MEDS: PANTOPRAZOLE SOD 40 MG SUSPENSION PACKET PO SCH (09:20)
[2024-08-14] MEDS ORDERED: PANTOPRAZOLE 40 MG TABLET PO SCH (10:28)
[2024-08-14] MEDS ORDERED: NEBIVOLOL 5 MG TABLET (FP) PO SCH (11:02)
[2024-08-14] MEDS: PANTOPRAZOLE 40 MG TABLET PO SCH (11:53)
[2024-08-14 17:52] VITALS: BP 122/81; PULSE 72; TEMP 98.8
== END 2024-08-14 18:45 | disposition home or self-care (01) | DRG 392 ==
LOC: JER 03:39 → JERBED 07:48 → J8W 14:24
PROVIDERS: ADMIT Internal Medicine; ATTEND Internal Medicine
DX: K52.9 Noninfective gastroenteritis and colitis, unspecified (principal); K56.7 Ileus, unspecified; I50.32 Chronic diastolic (congestive) heart failure; Z68.42 Body mass index [BMI] 45.0-49.9, adult; R10.9 Unspecified abdominal pain; J44.9 Chronic obstructive pulmonary disease, unspecified; N40.0 Benign prostatic hyperplasia without lower urinary tract symptoms; E11.9 Type 2 diabetes mellitus without complications; J45.909 Unspecified asthma, uncomplicated; G47.33 Obstructive sleep apnea (adult) (pediatric); E66.01 Morbid (severe) obesity due to excess calories; I11.0 Hypertensive heart disease with heart failure; F41.8 Other specified anxiety disorders
CPT/HCPCS: 36415; 71045-TC-FY; 74018-TC-FY; 74177-TC; 80053; 83605; 83690; 83735; 84443; 84484; 85025; 85610; 85730; 93005; 93010; 99285-25; J0131; Q9967